=== PATIENT | female | born 1930 | race Caucasian/White ===

== ENCOUNTER → 2016-03-28 | Outpatient (CLI) | payer OTHER, BC ==
[~2016-03-28] MED LIST: BIMA0.038 OPB; BTH25 PO; CALC500C70 PO; CHOL100010 PO; CMD2 PO; CMD3 PO; CYAN10005 PO; EZET10TA63 PO; LSX20 PO; NXM/40 PO; SENN-65 PO; SIMV20TA2 PO; TIMO0.2534 OPB
== END | disposition home or self-care (01) ==
LOC: C.LABSPEC 17:31
PROVIDERS: ATTEND Nurse Practitioner Adult Health
DX: N39.0 Urinary tract infection, site not specified (principal)

== ENCOUNTER → 2016-06-28 | Outpatient (CLI) | payer OTHER, BC | END | disposition home or self-care (01) | LOC: C.LABSPEC 16:58 | PROVIDERS: ATTEND Urology | DX: N39.0 Urinary tract infection, site not specified (principal) ==

== ENCOUNTER 2017-02-03 07:43 | Inpatient (IN) | payer OTHER, BC ==
[~2017-02-03] VITALS: Ht 157.5 cm; Wt 81.2 kg
--- NOTE | 2017-02-03 07:55 | EMERGENCY ROOM VISIT NOTE ---
History Report prepared by Josiah: Sander Perry Under the Supervision of: Dr. Garcia Dumont M.D. First contact with patient: 07:47 Stated Complaint: RESPIRATORY History of Present Illness The patient is an 86 year old female who presents to the Emergency Room with complaints of a persistent illness that started a couple weeks ago. She states that she thinks she has pneumonia. The patient says that she has been having shortness of breath with a dry cough, and fever. She notes that she was seen by her primary care provider 2 days ago, and was put on a Z-pack and CPAP. The patient adds that the CPAP had not been helping, so she did not use it today. She says that she also has pain on both sides of her chest. The patient denies any headaches, flu-like body aches, urinary symptoms, or bowel movement problems. She notes that she has no underlying lung issues. The patient is on Coumadin and has a pacemaker. She notes no history of heart attacks. She did get her flu shot this season. Source of History: patient, nursing staff Onset: A couple weeks ago Position: other (global - illness) Quality: other (thinks has pneumonia) Timing: other (persistent) Associated Symptoms: + fevers, + cough (dry), + chest pain, + SOB, No headache, No urinary symptoms (or bowel movement problems) Note: Associated symptoms: Denies flu-like body aches. Review of Systems See HPI for pertinent positives & negatives. A total of 10 systems reviewed and were otherwise negative. Past Medical & Surgical Medical Problems: (1) Atrial Fibrillation (2) Cardiac Pacemaker In Situ (3) Chest pain (4) Hyperlipidemia Nec/Nos (5) Personal History, Pneumonia (Recurrent) (6) Pnemonia (7) Spinal Stenosis-Lumbar Old medical records were reviewed. Nurse's notes were reviewed and I agree with. Family History Family history omitted secondary to patient's advanced age. Social History Smokeless Tobacco Use: No Drug Use: none Marital Status: Occupation Status: retired Current/Historical Medications Scheduled Ascorbic Acid (Vitamin C), 250 MG PO DAILY Bimatoprost (Lumigan), 1 DROPS OP HS Calcium Carbonate (Calcium Carbonate), 600 MG PO DAILY Cyanocobalamin (B-12), 100 MCG PO DAILY Docusate Sodium (Docusate Sodium), 100 MG PO DAILY Esomeprazole Magnesium (Nexium), 40 MG PO DAILY Ezetimibe (Zetia), 10 MG PO DAILY Simvastatin (Zocor), 20 MG PO QPM Timolol Maleate (Ophth) (Timolol Maleate), 1 DROP OPB DAILY Warfarin Sod (Jantoven), 2 MG PO UD Scheduled PRN Furosemide (Lasix), 20 MG PO DAILY PRN for ADEMA Allergies Coded Allergies: Sulfa Drugs (Verified Allergy, Unknown, SWEAT, RASH, VOMIT, 02/03/17) Tramadol (Unverified Allergy, Unknown, ., 02/03/17) Morphine (Verified Adverse Reaction, Intermediate, vomiting, 02/03/17) Physical Exam Vital Signs Date Time Temp Pulse Resp B/P (MAP) Pulse Ox O2 Delivery O2 Flow Rate FiO2 02/03/17 09:38 82 20 97 02/03/17 09:33 93 32 96 02/03/17 09:28 89 25 96 02/03/17 09:23 88 22 96 02/03/17 09:18 95 23 96 02/03/17 09:13 92 30 96 02/03/17 09:08 84 20 97 02/03/17 09:03 84 16 97 02/03/17 08:58 86 19 96 02/03/17 08:53 85 21 96 02/03/17 08:50 94 Nasal Cannula 3.0 02/03/17 08:48 108 21 93 02/03/17 08:44 86 02/03/17 08:42 94 Nasal Cannula 3.0 02/03/17 08:40 127/54 02/03/17 08:38 37.2 91 20 94 Nasal Cannula 3.0 02/03/17 07:49 Room Air 97 02/03/17 07:49 37.2 108 20 163/70 97 Room Air Physical Exam General: Non-ill appearing older female in no acute distress. HEENT: Normal cephalic atraumatic. Pupils are equal round and reactive to light. Extraocular movements are intact. Oropharynx is pink with moist mucous membranes. No swelling of the mouth lips or tongue. Neck: Supple with a midline trachea. No meningeal signs or stiffness, no JVD or bruits. No Stridor. Chest: Clear to auscultation bilaterally. No wheezes or rhonchi. No increased work of breathing. Heart: regular rate and rhythm. Abdomen: Soft nontender, nondistended without rebound guarding or rigidity. Extremities: No cyanosis clubbing or edema. No calf tenderness or assymetry Spine/Back. Non tender to palpation. No CVA tenderness Skin: Good turgor without rashes. Neurologic exam: Cranial nerves two through 12 are intact. Motor and sensation are intact and symmetrical throughout. Medical Decision & Procedures ER Provider Diagnostic Interpretation: X-ray results as stated below per interpretation by me and the radiologist: CHEST ONE VIEW PORTABLE CLINICAL HISTORY: 86 years-old Female presenting with CHEST PAIN. TECHNIQUE: Portable upright AP view of the chest was obtained. COMPARISON: 05/22/2011. FINDINGS: Left subclavian pacer with leads to the right atrium, coronary sinus, and right ventricular apex. Additional abandoned right ventricular lead also noted. Cardiac silhouette enlarged. Atherosclerosis of the aortic arch. Bilateral prominence of the alvaro, left greater than right. Patchy right mid and lower lung opacities. No large effusion or pneumothorax. Osseous structures normal. Upper abdomen normal. IMPRESSION: 1. Cardiomegaly with patchy right mid and lower lung opacities. This could represent pneumonia or aspiration. Pulmonary edema may be less likely given the asymmetry. 2. Prominence of the left hilum. An underlying mass or lymphadenopathy is difficult to exclude, although this may be vascular in origin. Further evaluation with chest CT to be considered as clinically indicated. The report will be called/faxed according to standard departmental protocol. Electronically signed by: Twin Rangel M.D. 02/03/2017 8:24 AM Dictated Date/Time: 02/03/2017 8:22 AM Laboratory Results 02/03/17 08:00 Red Blood Count 3.94, Mean Corpuscular Volume 91.6, Mean Corpuscular Hemoglobin 30.2, Mean Corpuscular Hemoglobin Concent 33.0, Mean Platelet Volume 8.2, Neutrophils (%) (Auto) 82.1, Lymphocytes (%) (Auto) 6.9, Monocytes (%) (Auto) 8.3, Eosinophils (%) (Auto) 2.1, Basophils (%) (Auto) 0.3, Neutrophils # (Auto) 13.14, Lymphocytes # (Auto) 1.11, Monocytes # (Auto) 1.32, Eosinophils # (Auto) 0.34, Basophils # (Auto) 0.04 02/03/17 08:00 Test 02/03/17 08:00 02/03/17 08:10 02/03/17 09:37 White Blood Count 16.00 K/uL (4.8-10.8) Red Blood Count 3.94 M/uL (4.2-5.4) Hemoglobin 11.9 g/dL (12.0-16.0) Hematocrit 36.1 % (37-47) Mean Corpuscular Volume 91.6 fL (80-100) Mean Corpuscular Hemoglobin 30.2 pg (25-34) Mean Corpuscular Hemoglobin Concent 33.0 g/dl (32-36) Platelet Count 214 K/uL (130-400) Mean Platelet Volume 8.2 fL (7.4-10.4) Neutrophils (%) (Auto) 82.1 % Lymphocytes (%) (Auto) 6.9 % Monocytes (%) (Auto) 8.3 % Eosinophils (%) (Auto) 2.1 % Basophils (%) (Auto) 0.3 % Neutrophils # (Auto) 13.14 K/uL (1.4-6.5) Lymphocytes # (Auto) 1.11 K/uL (1.2-3.4) Monocytes # (Auto) 1.32 K/uL (0.11-0.59) Eosinophils # (Auto) 0.34 K/uL (0-0.5) Basophils # (Auto) 0.04 K/uL (0-0.2) RDW Standard Deviation 48.2 fL (36.4-46.3) RDW Coefficient of Variation 14.3 % (11.5-14.5) Immature Granulocyte % (Auto) 0.3 % Immature Granulocyte # (Auto) 0.05 K/uL (0.00-0.02) Prothrombin Time 28.3 SECONDS (9.0-12.0) Prothromb Time International Ratio 2.7 (0.9-1.1) Activated Partial Thromboplast Time 52.7 SECONDS (21.0-31.0) Partial Thromboplastin Ratio 2.0 Anion Gap 9.0 mmol/L (3-11) Est Creatinine Clear Calc Drug Dose 57.9 ml/min Estimated GFR () 90.0 Estimated GFR (Non- 77.7 BUN/Creatinine Ratio 18.1 (10-20) Calcium Level 9.0 mg/dl (8.5-10.1) Total Bilirubin 0.4 mg/dl (0.2-1) Direct Bilirubin 0.1 mg/dl (0-0.2) Aspartate Amino Transf (AST/SGOT) 24 U/L (15-37) Alanine Aminotransferase (ALT/SGPT) 32 U/L (12-78) Alkaline Phosphatase 123 U/L (45-117) Total Creatine Kinase 55 U/L (26-192) Creatine Kinase MB < 0.5 ng/ml (0.5-3.6) Creatine Kinase MB Ratio (0-3.0) Pro-B-Type Natriuretic Peptide 406 pg/ml (0-1800) Total Protein 8.1 gm/dl (6.4-8.2) Albumin 2.8 gm/dl (3.4-5.0) Lipase 71 U/L (73-393) Influenza Type A Antigen Neg for Influ A (NEG) Influenza Type B Antigen Neg for Influ B (NEG) Bedside Lactic Acid Venous 0.49 mmol/L (0.90-1.70) Laboratory studies as stated above per my review. Medications Administered Medications (Trade) Dose Ordered Sig/Zoran Route Start Time Stop Time Status Last Admin Dose Admin Piperacillin Sod/ Tazobactam Sod (Zosyn Iv) 4.5 gm NOW STAT IV 02/03/17 09:18 02/03/17 09:20 DC 02/03/17 09:31 4.5 GM Sodium Chloride 250 ml @ 999 mls/hr Q16M STAT IV 02/03/17 09:18 02/03/17 09:33 DC 02/03/17 09:32 999 MLS/HR Sodium Chloride 1,000 ml @ 100 mls/hr Q10H STAT IV 02/03/17 09:18 02/03/17 11:46 DC 02/03/17 09:32 100 MLS/HR ECG Indication: SOB/dyspnea Rate (beats per minute): 94 Rhythm: other (ventricular paced rhythm) Findings: no acute ischemic change, no ectopy Comparison ECG Date: compared to May 19 2011, paced rhythm has replaced afib ED Course 0747: Past medical records reviewed. The patient was evaluated in room B7, and a complete history and physical examination were performed. 0918: Ordered NSS 1000 ml @ 100 mls/hr IV, NSS 250 ml @ 999 mls/hr IV, Zosyn IV 4.5 gm. 09: Upon reevaluation, the patient is resting comfortably. I discussed the results and treatment plan with the patient. She verbalized agreement of the treatment plan. The patient will be evaluated for further management. 926: Discussed the patient's case with Dr. Rahul Mcrae manager shop. The patient will be evaluated for further management. Medical Decision Differentials include pneumonia, bronchitis, influenza, cardiac disease, arrhythmia, electrolyte or metabolic abnormality. This patient comes in as described above. She was placed in room B7. She is here for treatment and evaluation of cough and temperature and concern for pneumonia. She's had pneumonia several years ago and says this feels similar she started a Z-Ernesto about 2 days ago. She says it hurts when she coughs. Her white count came back elevated. Her x-ray shows pneumonia in the right middle and lower lobes. She was given IV Zosyn as well as IV fluids she is remained normotensive. I do think she needs to be admitted for further treatment and evaluation. I have consult the [facility] hospitalist team to see her for admission. Medication Reconcilliation Current Medication List: was personally reviewed by me Blood Pressure Screening Patient's blood pressure: Elevated blood pressure Blood pressure disposition: Elevated BP felt to be situational Consults Time Called: [phone] Consulting Physician: Dr. Rahul Mcrae manager shop Returned Call: [phone] Discussed the patient's case with Dr. Rahul Mcrae manager shop. The patient will be evaluated for further management. Impression Primary Impression: PNA (pneumonia) Scribe Attestation The scribe's documentation has been prepared under my direction and personally reviewed by me in its entirety. I confirm that the note above accurately reflects all work, treatment, procedures, and medical decision making performed by me. Departure Information Dispostion Being Evaluated By Hospitalist Referrals Anthony Lanier PA-C (PCP)
[2017-02-03 08:22] LABS: BASO % 0.3 %; BASO ABS # 0.04 K/uL (0-0.2); EOS % 2.1 %; EOS ABS # 0.34 K/uL (0-0.5); HEMATOCRIT 36.1 % (37-47); HEMOGLOBIN 11.9 g/dL (12.0-16.0); IG# 0.05 K/uL (0.00-0.02); LYMPH % 6.9 %; LYMPH ABS # 1.11 K/uL (1.2-3.4); MEAN CELL VOLUME 91.6 fL (80-100); MEAN CORPUSCULAR HEMOGLOBIN 30.2 pg (25-34); MEAN PLATELET VOLUME 8.2 fL (7.4-10.4); MONO % 8.3 %; MONO ABS # 1.32 K/uL (0.11-0.59); NEUT % 82.1 %; NEUT ABS # 13.14 K/uL (1.4-6.5); PLATELET COUNT 214 K/uL (130-400); RED CELL DISTRIBUTION WIDTH CV 14.3 % (11.5-14.5); RED CELL DISTRIBUTION WIDTH SD 48.2 fL (36.4-46.3)
--- NOTE | 2017-02-03 08:25 | DIAGNOSTIC IMAGING REPORT ---
CHEST ONE VIEW PORTABLE CLINICAL HISTORY: 86 years-old Female presenting with CHEST PAIN. TECHNIQUE: Portable upright AP view of the chest was obtained. COMPARISON: 05/22/2011. FINDINGS: Left subclavian pacer with leads to the right atrium, coronary sinus, and right ventricular apex. Additional abandoned right ventricular lead also noted. Cardiac silhouette enlarged. Atherosclerosis of the aortic arch. Bilateral prominence of the alvaro, left greater than right. Patchy right mid and lower lung opacities. No large effusion or pneumothorax. Osseous structures normal. Upper abdomen normal. IMPRESSION: 1. Cardiomegaly with patchy right mid and lower lung opacities. This could represent pneumonia or aspiration. Pulmonary edema may be less likely given the asymmetry. 2. Prominence of the left hilum. An underlying mass or lymphadenopathy is difficult to exclude, although this may be vascular in origin. Further evaluation with chest CT to be considered as clinically indicated. The report will be called/faxed according to standard departmental protocol. Electronically signed by: Twin Rangel M.D. 02/03/2017 8:24 AM Dictated Date/Time: 02/03/2017 8:22 AM
[2017-02-03 08:43] LABS: ALBUMIN 2.8 gm/dl (3.4-5.0); BLOOD UREA NITROGEN 13 mg/dl (7-18); CARBON DIOXIDE 26 mmol/L (21-32); CREATININE 0.71 mg/dl (0.60-1.20); GLUCOSE 144 mg/dl (70-99); POTASSIUM 3.6 mmol/L (3.5-5.1); SODIUM 135 mmol/L (136-145); TOTAL PROTEIN 8.1 gm/dl (6.4-8.2)
[2017-02-03 08:44] LABS: ALKALINE PHOSPHATASE 123 U/L (45-117); ALT/SGPT 32 U/L (12-78); AST/SGOT 24 U/L (15-37); CKMB < 0.5 ng/ml (0.5-3.6); LIPASE 71 U/L (73-393)
[2017-02-03 08:46] LABS: INFLUENZA B ANTIGEN Neg for Influ B (NEG)
[2017-02-03 08:48] LABS: INR 2.7 (0.9-1.1)
[2017-02-03] MEDS ORDERED: [UNRECOGNIZED DRUG - CODE] OPB (09:01)
[2017-02-03] MEDS ORDERED: CYAN1TAB2 PO (09:01)
[2017-02-03] MEDS ORDERED: DOCU100C31 PO (09:01)
[2017-02-03] MEDS ORDERED: CALC-392 PO (09:01)
[2017-02-03] MEDS ORDERED: BIMA0.01 OP (09:01)
[2017-02-03] MEDS ORDERED: ASCO250C3 PO (09:01)
[2017-02-03] MEDS ORDERED: FURO-85 PO (09:01)
[2017-02-03] MEDS ORDERED: WARF2TAB8 PO (09:02)
[2017-02-03] MEDS ORDERED: SODIUM CHLORIDE 0.9% 1000ML 1,000 ML IV STA (09:18)
[2017-02-03] MEDS ORDERED: PIPERACILLIN/TAZOBACTAM 4.5 GM/100ML D5W IV STA (09:18)
[2017-02-03] MEDS ORDERED: SODIUM CHLORIDE 0.9% 1000ML 250 ML IV STA (09:18)
[2017-02-03 09:33] LABS: PTT PATIENT 52.7 SECONDS (21.0-31.0)
[2017-02-03] MEDS ORDERED: MAGNESIUM HYDROXIDE SUSP 30 ML UDC PO PRN (10:30)
[2017-02-03] MEDS ORDERED: ONDANSETRON INJ 2 MG/ML 2 ML VIAL IV PRN (10:30)
[2017-02-03] MEDS ORDERED: ALUMINUM/MAGNESIUM/SIMETH (MAALOX MAX) 30 ML UDC PO PRN (10:30)
[2017-02-03] MEDS ORDERED: ACETAMINOPHEN 325 MG TAB PO PRN (10:30)
[2017-02-03] MEDS ORDERED: NITROGLYCERIN 0.4 MG SL PER TAB CHARGE SL PRN (10:30)
[2017-02-03] MEDS ORDERED: OPTIRAY 320 IV PRN (10:30)
--- NOTE | 2017-02-03 11:10 | NUR ---
A: First contact with patient, arrived from ED. Walked oob to bed independently with steady gait, VSS. Admission completed with patient at bedside. Oriented to room. Assessment as charted in admission. IV fluids running per MD order.
[2017-02-03 11:17] VITALS: BP 157/83; PULSE 91; TEMP 36.9; Ht 157.5 cm; Wt 81.2 kg
--- NOTE | 2017-02-03 12:04 | NUR ---
A: Patient to CT scan via wheelchair.
[2017-02-03] MEDS: DOXYCYCLINE IV 100 MG in DEXTROSE 5% 100ML 100 ML IV SCH ×2 (12:18→23:34)
[2017-02-03] MEDS: SODIUM CHLORIDE 0.9% 1000ML 1,000 ML IV SCH (12:18)
--- NOTE | 2017-02-03 12:20 | DIAGNOSTIC IMAGING REPORT ---
(CHEST FOR PE) ANGIO WITH CLINICAL HISTORY: 86 years-old Female presenting with ^CHEST PAIN. SOB. HILAR MASS. TECHNIQUE: Multidetector CT angiography of the chest was performed after administration of intravenous contrast. 3-D volumetric and/or maximum intensity projection (MIP) images were subsequently reconstructed for review. IV contrast: 89 mL of Optiray 320. A dose lowering technique was used consistent with the principles of ALARA (as low as reasonably achievable). COMPARISON: Chest x-ray performed earlier the same day. CT DOSE (mGy.cm): The estimated cumulative dose is 551.78 mGy.cm. FINDINGS: Paramedic Supervisor topogram: Left subclavian pacer. Pulmonary vasculature: The study is adequate for assessment of the pulmonary vascular tree. No filling defect within the pulmonary arteries to suggest embolus. Main pulmonary artery enlarged measuring nearly 4 cm in transverse dimension. No flattening of the interventricular septum. No intracardiac filling defect. No reflux of contrast into the hepatic veins. Remaining chest: On soft tissue windows, multiple hypodense exophytic nodules noted in the thyroid, the largest measuring over 2 cm. Several prominent mediastinal lymph nodes noted in the pretracheal and subcarinal regions measuring up to 12 mm in the short axis. Prominent hilar lymph nodes, right greater than left. Atherosclerosis of the aorta. Left subclavian pacer with leads to the right atrium, coronary sinus, and right ventricular apex. Coronary artery calcification. Normal heart size. Trace left pleural effusion. No pericardial effusion. 2.7 cm nodule in the left adrenal gland with a density consistent with a benign adenoma. On lung windows, patchy solid consolidation in the right middle lobe, left apex, and lingula. Tree-in-bud opacities in the superior segment of the right lower lobe and right upper lobe. Minimal patchy opacities also noted in the lower lobes primarily peripherally independently. Central airways patent. On bone windows, degenerative changes of the spine. IMPRESSION: 1. No evidence of pulmonary embolus. 2. Patchy consolidation in all 5 lobes to varying degrees concerning for multifocal pneumonia. Element of atelectasis likely coexists, especially in the lingula. 3. Mediastinal and hilar lymphadenopathy, which could be reactive given the findings of pneumonia. 4. Main pulmonary artery enlargement suggests pulmonary hypertension. 5. Prominent thyroid nodules. Electronically signed by: Twin Rangel M.D. 02/03/2017 12:19 PM Dictated Date/Time: 02/03/2017 12:10 PM
--- NOTE | 2017-02-03 13:12 | HISTORY & PHYSICAL EXAMINATION ---
DATE OF ADMISSION: 02/03/2017 CHIEF COMPLAINT: Shortness of breath and weakness. HISTORY OF PRESENT ILLNESS: This is an 86-year-old female with past medical history significant for paroxysmal atrial fibrillation status post pacemaker, history of recurrent pneumonia, history of hyperlipidemia, history of spinal stenosis, presents with not feeling well, Has on and off some dry cough. She saw her family doctor a few days back and was prescribed Z-YOGI, but she said it was not helping. She also had some chest pains, right lower side and midchest, mostly on coughing and moving around, but has a point tenderness, so she came to the ER and found to have pneumonia on x-ray. Hemodynamically stable. Denies any dizziness. Has headaches, has macular degeneration, has hearing problem. No nasal drainage. No sore throat, no difficulty swallowing. No nausea, no vomiting, no abdominal pain. Appetite has been poor for last few days. Ambulates okay at home. Sometimes uses cane. Normal bowel and bladder movements. No blood in the stools, no blood in the urine. No burning micturition. Currently, resting comfortably and hemodynamically stable. ALLERGIES: MORPHINE, OXYCODONE, SULFA ANTIBIOTICS, AND TRAMADOL. PAST MEDICAL HISTORY: As mentioned above. PAST SURGICAL HISTORY: Pacemaker placement, tubal ligation, tonsillectomy, heel spur removal. FAMILY HISTORY: Father of esophageal cancer, mother of heart disease. SOCIAL HISTORY: No smoking history. Lives with her daughter. REVIEW OF SYMPTOMS: As per HPI. Rest of review of symptoms negative. MEDICATIONS: At home: The patient is on Lasix 20 mg p.o. daily p.r.n. for edema, ascorbic acid 250 mg p.o. daily, Lumigan 0.01% ophthalmic solution at bedtime, calcium carbonate 600 mg p.o. daily, vitamin B12 100 mcg p.o. daily, Colace 100 mg p.o. daily, Nexium 40 mg p.o. daily, Zetia 10 mg p.o. daily, Zocor 20 mg p.o. q.p.m., timolol 0.5% ophthalmic solution daily, Coumadin 2 mg as directed. PHYSICAL EXAMINATION: GENERAL: The patient is of moderate build, not in distress. VITAL SIGNS: Temperature 37.2, pulse 82, respiratory rate 20, blood pressure 127/54, oxygen 97% on 3 liters. HEENT: No pallor, no icterus. Pupils equal, round, and reactive to light. NECK: No JVD, no neck masses, no carotid bruits. CARDIOVASCULAR: S1, S2 heard, regular rate and rhythm, no murmur, no gallop. RESPIRATORY SYSTEM: Normal AP diameter. No accessory muscle use. Mild bibasilar crackles. No wheezing. ABDOMEN: Soft, bowel sounds present. Nontender. No distention. CENTRAL NERVOUS SYSTEM: Cranial nerves II-XII grossly intact. Nonfocal. EXTREMITIES: Trace pedal edema, no erythema. LABS: WBC 16, hemoglobin 11.9, hematocrit 36.1, platelets 214. Sodium 135, potassium 3.6, chloride 101, bicarbonate 26, BUN 13, creatinine 0.7, serum glucose 144, point of care lactic acid 0.4. Calcium 9, total bilirubin 0.4, direct bilirubin 0.1, AST 24, ALT 32, alkaline phosphatase 123. Lipase 71, PT 28.3 INR 2.7, APTT 52.7 Influenza A and B negative. IMAGING DATA: Chest x-ray shows patchy right mid and lower lung opacities. This could represent pneumonia aspiration, prominence of the left hilum. Underlying mass or lymphadenopathy difficult to exclude. EKG: Shows atrial sensed ventricular paced rhythm with a rate of 94. ASSESSMENT AND PLAN: This is an 86-year-old female who presents with pneumonia. 1. Right-sided pneumonia. The patient feeling weak and cough. Failed outpatient Z-YOGI. Possible aspiration. We will place on IV doxycycline and IV Unasyn. We will get a speech evaluation. Will also do flu PCR test. Monitor on tele floor. 2. Chest pains mostly from pneumonia. We will also get a CT chest to rule out PE and also for underlying lung hilar mass, will trend the cardiac enzymes. 3. History of atrial fibrillation status post pacemaker. Heart rate is under control on Coumadin. INR is therapeutic. Will follow PT/INR. 4. Hyperlipidemia. Continue statin and Zetia. 5. Gastroesophageal reflux disease. Continue Nexium. 6. Deep venous thrombosis prophylaxis, on Coumadin. DISPOSITION: Admit to tele floor. Expect to discharge home and follow with family doctor. Level 1 full code. MTDD
[2017-02-03] MEDS: AMPICILLIN/SULBACTAM SOD INJ 1,500 MG in SODIUM CHLORIDE 0.9% 100ML 100 ML IV SCH ×2 (14:34→19:52)
[2017-02-03 14:51] VITALS: BP 143/72; PULSE 83; TEMP 36.9; O2SAT 96
[2017-02-03] MEDS: WARFARIN SOD 2 MG TAB PO SCH (17:12)
[2017-02-03 19:33] LABS: CKMB 0.5 ng/ml (0.5-3.6)
[2017-02-03] MEDS: SIMVASTATIN 20 MG TAB PO SCH (19:47)
[2017-02-03] MEDS: BIMATOPROST 0.01% OP SOLN 2.5 ML BTL OP SCH (19:48)
[2017-02-03 19:57] VITALS: BP 123/72; PULSE 87; TEMP 37.9; O2SAT 97
--- NOTE | 2017-02-03 20:00 | NUR ---
A: Assessment completed see EMR. Pt is A&Ox4 and is OOB with supervision in the room. Pt admitted with chest pain and pneumonia. Pt complains of a headache at this time rating it a 7 out of 10. See eMAR. Vitals WNL. +1 pitting edema noted to pts BLE. Pt is paced on the monitor. Pt is currently on NSS running at 75mL/hr into her left AC. Pt is currently on 3L of O2 via nasal cannula and is sating in the 90s. Pt is a moderate fall risk. Call mane within reach and pt encouraged to ring for assistance. Pt is from home and plans to return there upon discharge. No discharge date at this time.
[2017-02-03 23:23] VITALS: BP 115/65; PULSE 78; TEMP 36.7; O2SAT 98
[2017-02-04] VITALS (7 sets, daily range): BP systolic 104–134; BP diastolic 53–73; PULSE 74–92; TEMP 36.7–37.6; O2SAT 95–99
--- NOTE | 2017-02-04 | NUR ---
A: Assessment completed see EMR. Pt is resting at this time with no complaints. Vitals WNL. Pt is paced on the monitor. Call mane within reach, pt encouraged to ring and bed alarm in use.
[2017-02-04] MEDS: SODIUM CHLORIDE 0.9% 1000ML 1,000 ML IV SCH ×2 (01:41→14:25)
[2017-02-04] MEDS: AMPICILLIN/SULBACTAM SOD INJ 1,500 MG in SODIUM CHLORIDE 0.9% 100ML 100 ML IV SCH ×4 (01:44→20:09)
[2017-02-04 03:12] LABS: CKMB 0.6 ng/ml (0.5-3.6)
--- NOTE | 2017-02-04 04:00 | NUR ---
A: Assessment completed see EMR. Pt is resting at this time with no complaints. Vitals WNL. Pt is paced on the monitor. Call mane within reach and pt encouraged to ring for assistance.
[2017-02-04 07:35] LABS: BASO % 0.3 %; BASO ABS # 0.05 K/uL (0-0.2); EOS % 1.7 %; EOS ABS # 0.25 K/uL (0-0.5); HEMATOCRIT 33.2 % (37-47); HEMOGLOBIN 10.6 g/dL (12.0-16.0); IG# 0.06 K/uL (0.00-0.02); LYMPH % 6.7 %; MEAN CELL VOLUME 92.5 fL (80-100); MEAN CORPUSCULAR HEMOGLOBIN 29.5 pg (25-34); MEAN CORPUSCULAR HGB CONC 31.9 g/dl (32-36); MEAN PLATELET VOLUME 8.4 fL (7.4-10.4); MONO % 10.4 %; MONO ABS # 1.56 K/uL (0.11-0.59); NEUT % 80.5 %; NEUT ABS # 12.11 K/uL (1.4-6.5); PLATELET COUNT 214 K/uL (130-400); RED CELL DISTRIBUTION WIDTH CV 14.2 % (11.5-14.5); RED CELL DISTRIBUTION WIDTH SD 48.2 fL (36.4-46.3); WHITE BLOOD COUNT 15.03 K/uL (4.8-10.8)
[2017-02-04] MEDS: EZETIMIBE 10MG TAB PO SCH (07:39)
[2017-02-04] MEDS: PANTOprazole SOD 40 MG TAB PO SCH ×2 (07:39→07:43)
[2017-02-04] MEDS: CALCIUM CARBONATE 1250MG TAB PO SCH (07:39)
[2017-02-04] MEDS: DOCUSATE SODIUM 100 MG CAP PO SCH (07:39)
[2017-02-04] MEDS: CYANOCOBALAMIN 100 MCG TAB (VIT B-12) PO SCH (07:40)
[2017-02-04] MEDS: ASCORBIC ACID 500 MG TAB PO SCH (07:40)
[2017-02-04] MEDS: TIMOLOL MALEATE 0.5% OP SOLN 5 ML BTL OPB SCH (07:41)
[2017-02-04 07:49] LABS: INR 3.4 (0.9-1.1)
[2017-02-04 08:12] LABS: ALBUMIN 2.2 gm/dl (3.4-5.0); CALCIUM 8.4 mg/dl (8.5-10.1); CREATININE 0.61 mg/dl (0.60-1.20)
--- NOTE | 2017-02-04 08:52 | NUR ---
A: AGREE WITH FERMIN POMPASEWER AND INSPECTOR AND CHARTING.
--- NOTE | 2017-02-04 08:54 | NUR ---
A: Pt. is AAO sitting comfortably on the side of the bed. No complaints of pain. IV antibiotic is running. IV site intact and asymptomatic.
[2017-02-04] MEDS: DOXYCYCLINE IV 100 MG in DEXTROSE 5% 100ML 100 ML IV SCH (11:47)
--- NOTE | 2017-02-04 12:00 | NUR ---
A: Pt. is AAOx4. VSS on NC 3L. Pt. is comfortably sitting on the side of the bed. No pain reported.
--- NOTE | 2017-02-04 13:50 | NUR ---
Case Management: This pt is on the screening tool for >80 & living alone. Met with pt to do discharge planning. Pt lives in a trailer with no steps to enter. She uses a cane occasionally. She is receiving home delivered meals and has assist from a granddgariel Vasquez who visits almost daily and assists with what ever pt needs. Pt states she is able to bathe and dress herself. Her vision is limited due to glaucoma and she is serviced by the [facility] - they provide tools to assist with her vision as needed. Pt denies any difficulty taking her medications. No discharge needs identified at this visit.
[2017-02-04] MEDS: WARFARIN SOD 2 MG TAB PO SCH (15:52)
--- NOTE | 2017-02-04 16:00 | NUR ---
A: The patient is alert and oriented x4, sitting at the edge of the bed in no apparent distress. Pt denies pain, nausea and shortness of breath, vital signs are stable on O2 3L via nasal cannula and the patient is in a paced rhythm on the lunchroom monitor. The patient's IV fluids have been discontinued, so her left antecubital peripheral IV site is saline locked and asymptomatic. See full assessment. Call mane is within reach.
--- NOTE | 2017-02-04 16:08 | Progress Note ---
Internal Med Progress Note Date of Service: Feb 04, 2017. Provider Documentation: SUBJECTIVE: resting comfortably feeling much better sob and cough much improved denies any chest pain wants to go home eating fine OBJECTIVE: Vital Signs-as noted below Exam: General-alert and oriented. Not in distress ENT-Normal hearing Neck-no neck masses supple Lungs-cta b/l no wheezing no crackles Heart-S1 and S2 heard regular rate and rthym, no murmurs Abdomen-Soft bowel sounds present non tender no distension Extremities-no edema no erythema Neuro-alert and awake moves extremities Lab data as noted below. ASSESSMENT & PLAN: : This is an 86-year-old female who presents with pneumonia. 1.Multi ,lobar pneumonia. The patient feeling weak and cough. Failed outpatient Z-YOGI. Possible aspiration. Started on IV doxycycline and IV Unasyn. We will get a speech evaluation. Improving. continue same. 2. Chest pains mostly from pneumonia. Serial Ce negative CTA chest no PE. Mediastinal lymphadenopathy mostly reactive. Currently asymptomatic. 3. History of atrial fibrillation status post pacemaker. Heart rate is under control on Coumadin. INR is therapeutic. Will follow PT/INR. 4. Hyperlipidemia. Continue statin and Zetia. 5. Gastroesophageal reflux disease. Continue Nexium. 6. Deep venous thrombosis prophylaxis, on Coumadin DISPOSITION pt/ot possible d/c in am if stable Vital Signs: Date Time Temp Pulse Resp B/P (MAP) Pulse Ox O2 Delivery O2 Flow Rate FiO2 02/04/17 14:35 37.0 79 17 134/73 (93) 95 3.0 02/04/17 11:57 Nasal Cannula 3.0 02/04/17 10:59 36.7 74 18 124/72 (89) 97 3.0 02/04/17 07:59 Nasal Cannula 3.0 02/04/17 07:18 37.3 80 20 120/53 (75) 98 Nasal Cannula 3.0 02/04/17 05:23 36.9 79 20 119/53 (75) 95 Nasal Cannula 3.0 02/04/17 04:00 Nasal Cannula 3.0 02/04/17 00:00 Nasal Cannula 3.0 02/03/17 23:23 36.7 78 20 115/65 (82) 98 Nasal Cannula 3.0 02/03/17 20:00 Nasal Cannula 3.0 02/03/17 19:57 37.9 87 19 123/72 (89) 97 Nasal Cannula 2.0 Lab Results: Results Past 24 Hours Test 02/03/17 18:27 02/04/17 02:33 02/04/17 07:01 Range/Units Total Creatine Kinase 50 47 26-192 U/L Creatine Kinase MB 0.5 0.6 0.5-3.6 ng/ml Creatine Kinase MB Ratio 1.0 1.3 0-3.0 Troponin I < 0.015 < 0.015 0-0.045 ng/ml White Blood Count 15.03 4.8-10.8 K/uL Red Blood Count 3.59 4.2-5.4 M/uL Hemoglobin 10.6 12.0-16.0 g/dL Hematocrit 33.2 37-47 % Mean Corpuscular Volume 92.5 80-100 fL Mean Corpuscular Hemoglobin 29.5 25-34 pg Mean Corpuscular Hemoglobin Concent 31.9 32-36 g/dl Platelet Count 214 130-400 K/uL Mean Platelet Volume 8.4 7.4-10.4 fL Neutrophils (%) (Auto) 80.5 % Lymphocytes (%) (Auto) 6.7 % Monocytes (%) (Auto) 10.4 % Eosinophils (%) (Auto) 1.7 % Basophils (%) (Auto) 0.3 % Neutrophils # (Auto) 12.11 1.4-6.5 K/uL Lymphocytes # (Auto) 1.00 1.2-3.4 K/uL Monocytes # (Auto) 1.56 0.11-0.59 K/uL Eosinophils # (Auto) 0.25 0-0.5 K/uL Basophils # (Auto) 0.05 0-0.2 K/uL RDW Standard Deviation 48.2 36.4-46.3 fL RDW Coefficient of Variation 14.2 11.5-14.5 % Immature Granulocyte % (Auto) 0.4 % Immature Granulocyte # (Auto) 0.06 0.00-0.02 K/uL Prothrombin Time 34.6 9.0-12.0 SECONDS Prothromb Time International Ratio 3.4 0.9-1.1 Sodium Level 136 136-145 mmol/L Potassium Level 4.0 3.5-5.1 mmol/L Chloride Level 103 98-107 mmol/L Carbon Dioxide Level 27 21-32 mmol/L Anion Gap 6.0 3-11 mmol/L Blood Urea Nitrogen 9 7-18 mg/dl Creatinine 0.61 0.60-1.20 mg/dl Est Creatinine Clear Calc Drug Dose 66.2 ml/min Estimated GFR () 95.8 Estimated GFR (Non- 82.7 BUN/Creatinine Ratio 14.2 10-20 Random Glucose 119 70-99 mg/dl Calcium Level 8.4 8.5-10.1 mg/dl Magnesium Level 1.9 1.8-2.4 mg/dl Total Bilirubin 0.4 0.2-1 mg/dl Direct Bilirubin 0.2 0-0.2 mg/dl Aspartate Amino Transf (AST/SGOT) 23 15-37 U/L Alanine Aminotransferase (ALT/SGPT) 30 12-78 U/L Alkaline Phosphatase 127 45-117 U/L Total Protein 7.0 6.4-8.2 gm/dl Albumin 2.2 3.4-5.0 gm/dl
--- NOTE | 2017-02-04 20:00 | NUR ---
A/ID: The patient is alert and oriented x4, denies pain, nausea and shortness of breath. The patient's vital signs are stable, and she is in a paced rhythm on the secured entrance monitor. Assessment is unchanged, the patient is sitting at the edge of the bed in no apparent distress. The patient is from home with her daughter and she would like to return home as soon as she is able. The patient's oxygen was titrated to 2L, so far tolerating well. The patient states that she does not use O2 at home. The patient's left antecubital peripheral IV site is saline locked and asymptomatic, IV antibiotic is being hung at this time see APR. Discharge is uncertain at this time. The patient is able to ambulate to the bathroom with supervision assistance. Call mane is within reach.
[2017-02-04] MEDS: BIMATOPROST 0.01% OP SOLN 2.5 ML BTL OP SCH (21:07)
[2017-02-04] MEDS: SIMVASTATIN 20 MG TAB PO SCH (21:07)
[2017-02-05] VITALS (7 sets, daily range): BP systolic 123–144; BP diastolic 67–74; PULSE 72–97; TEMP 36.7–37.1; O2SAT 89–96
--- NOTE | 2017-02-05 00:05 | NUR ---
A: Upon assessment pt alert & oriented x 4. Paced on monitor. Ambulates to BR with supervision. Denies pain. Will continue to monitor.
[2017-02-05] MEDS: DOXYCYCLINE IV 100 MG in DEXTROSE 5% 100ML 100 ML IV SCH ×2 (00:35→11:08)
[2017-02-05] MEDS: AMPICILLIN/SULBACTAM SOD INJ 1,500 MG in SODIUM CHLORIDE 0.9% 100ML 100 ML IV SCH ×3 (02:13→14:07)
--- NOTE | 2017-02-05 04:00 | NUR ---
A: No change in pt condition. Resting in bed with eyes closed. Will continue to monitor.
[2017-02-05 06:26] LABS: BASO % 0.4 %; BASO ABS # 0.05 K/uL (0-0.2); EOS % 2.9 %; EOS ABS # 0.33 K/uL (0-0.5); HEMATOCRIT 31.8 % (37-47); HEMOGLOBIN 10.1 g/dL (12.0-16.0); IG# 0.05 K/uL (0.00-0.02); LYMPH % 10.7 %; LYMPH ABS # 1.24 K/uL (1.2-3.4); MEAN CELL VOLUME 92.4 fL (80-100); MEAN CORPUSCULAR HEMOGLOBIN 29.4 pg (25-34); MEAN CORPUSCULAR HGB CONC 31.8 g/dl (32-36); MEAN PLATELET VOLUME 8.2 fL (7.4-10.4); MONO % 11.7 %; MONO ABS # 1.35 K/uL (0.11-0.59); NEUT % 73.9 %; NEUT ABS # 8.54 K/uL (1.4-6.5); PLATELET COUNT 216 K/uL (130-400); RED CELL DISTRIBUTION WIDTH CV 14.2 % (11.5-14.5); RED CELL DISTRIBUTION WIDTH SD 48.4 fL (36.4-46.3); WHITE BLOOD COUNT 11.56 K/uL (4.8-10.8)
[2017-02-05 06:57] LABS: CALCIUM 8.7 mg/dl (8.5-10.1); CREATININE 0.55 mg/dl (0.60-1.20); POTASSIUM 3.7 mmol/L (3.5-5.1)
[2017-02-05 06:59] LABS: INR 3.5 (0.9-1.1)
[2017-02-05] MEDS: TIMOLOL MALEATE 0.5% OP SOLN 5 ML BTL OPB SCH (07:45)
[2017-02-05] MEDS: CYANOCOBALAMIN 100 MCG TAB (VIT B-12) PO SCH (07:48)
[2017-02-05] MEDS: ASCORBIC ACID 500 MG TAB PO SCH (07:48)
[2017-02-05] MEDS: EZETIMIBE 10MG TAB PO SCH (07:48)
[2017-02-05] MEDS: PANTOprazole SOD 40 MG TAB PO SCH (07:49)
[2017-02-05] MEDS: CALCIUM CARBONATE 1250MG TAB PO SCH (07:49)
[2017-02-05] MEDS: DOCUSATE SODIUM 100 MG CAP PO SCH (07:49)
--- NOTE | 2017-02-05 08:00 | NUR ---
A: Supervision to bathroom. IV SL. Continue with intermittent antibiotics. Tolerating AHA diet. Paced on monitor. Denying pain. Spo2 89% on RA. 1L nasal cannula placed on patient- 93%. Anticipated discharge uncertain at present time.
--- NOTE | 2017-02-05 12:00 | NUR ---
A: Patient alert and oriented x4. Saline lock LAC- continue with IV intermittent antibiotics. Paced on monitor. Supervision with transfers. Anticipated discharge to home this afternoon.
[2017-02-05] MEDS ORDERED: LCTX PO (15:44)
[2017-02-05] MEDS ORDERED: AMOX875T PO (15:44)
[2017-02-05] MEDS ORDERED: DOXY100C41 PO (15:44)
[2017-02-05] MEDS ORDERED: VNTHFA/IN INH (15:46)
--- NOTE | 2017-02-05 15:46 | Discharge Instructions ---
Discharge Instructions Date of Service Feb 05, 2017. Admission Reason for Admission: Chest Pain, Pna Discharge Discharge Diagnosis / Problem: pneumonia Discharge Goals Goal(s): Decrease discomfort, Improve function Activity Recommendations Activity Limitations: resume your previous activity . Instructions / Follow-Up Instructions / Follow-Up FOLLOWUP WITH FAMILY DOCTOR IN ONE WEEK FOLLOWUP WITH COUMADIN CLINIC FOR COUMADIN LEVELS CHECK IN 2-3 DAYS. Speech Therapy Discharge Instructions : * Recommendin.Slippery diet with thin liquids 2.GERD precautions: FULLY upright for meals and for 20-30 minutes after; keep head of bed elevated AT LEAST 30-degrees at all times--even sleep; alternate solids and liquids frequently during meals Current Hospital Diet Patient's current hospital diet: AHA Diet (Heart Healthy) Discharge Diet Recommended Diet: AHA Diet (Heart Healthy) Pending Studies Studies pending at discharge: no Medical Emergencies . Who to Call and When: Medical Emergencies: If at any time you feel your situation is an emergency, please call 911 immediately. . Non-Emergent Contact Non-Emergency issues call your: Primary Care Provider . . "Provider Documentation" section prepared by Thony Rueda. . VTE Core Measure Inpt VTE Proph given/why not?: Warfarin (Coumadin)
[2017-02-05] MEDS ORDERED: DOXYCYCLINE HYCLATE 100 MG CAP PO STA (15:52)
[2017-02-05] MEDS ORDERED: AMOXICILLIN/CLAVULANATE TAB 875 MG TAB PO STA (15:52)
--- NOTE | 2017-02-05 16:23 | NUR ---
A: Pt discharged this shift. IV site removed on previous shift. Heart monitor removed. Patient declines assessment due to being discharged. Discharge instructions given to patient who verbalizes understanding. Patient is A&Ox4. Family members also present at bedside. Patient declines wheelchair escort to the front. Patient has been paced on the monitor. Coumadin held due to INR 3.5.
--- NOTE | 2017-02-05 18:22 | Progress Note ---
Internal Med Progress Note Date of Service: Feb 05, 2017. Provider Documentation: SUBJECTIVE: resting comfortably passed two step cough and sob much improved afebrile eating fine wants to be discharged OBJECTIVE: Vital Signs-as noted below Exam: General-alert and oriented. Not in distress ENT-Normal hearing Neck-no neck masses supple Lungs-cta b/l no wheezing no crackles Heart-S1 and S2 heard regular rate and rthym, no murmurs Abdomen-Soft bowel sounds present non tender no distension Extremities-no edema no erythema Neuro-alert and awake moves extremities Lab data as noted below. ASSESSMENT & PLAN: : This is an 86-year-old female who presents with pneumonia. 1.Multi ,lobar pneumonia. The patient feeling weak and cough. Failed outpatient Z-YOGI. Possible aspiration. Started on IV doxycycline and IV Unasyn. much improved seen by speech and recommendations given: Recommendin.Slippery diet with thin liquids 2.GERD precautions: FULLY upright for meals and for 20-30 minutes after; keep head of bed elevated AT LEAST 30-degrees at all times--even sleep; alternate solids and liquids frequently during meals discharged on Augmentin and doxycycline. 2. Chest pains mostly from pneumonia. Serial Ce negative CTA chest no PE. Mediastinal lymphadenopathy mostly reactive. Currently asymptomatic. 3. History of atrial fibrillation status post pacemaker. Heart rate is under control on Coumadin. INR is 3.5 today. f/u with coumadin clinic 4. Hyperlipidemia. Continue statin and Zetia. 5. Gastroesophageal reflux disease. Continue Nexium. discharged home Vital Signs: Date Time Temp Pulse Resp B/P (MAP) Pulse Ox O2 Delivery O2 Flow Rate FiO2 02/05/17 16:05 36.7 80 18 92 02/05/17 15:38 36.7 80 18 129/74 (92) 92 Room Air 02/05/17 11:23 36.7 72 18 123/67 (85) 96 Room Air 02/05/17 10:46 92 02/05/17 08:14 93 Nasal Cannula 1.0 02/05/17 07:39 37.0 72 18 144/71 (95) 89 Room Air 02/05/17 04:55 37.1 97 19 125/72 (89) 90 Nasal Cannula 2.0 02/05/17 04:01 Nasal Cannula 2.0 02/05/17 00:05 Nasal Cannula 2.0 02/04/17 23:38 37.6 80 16 131/70 (90) 97 02/04/17 22:03 92 99 Nasal Cannula 2.0 02/04/17 20:00 Nasal Cannula 2.0 02/04/17 19:04 36.8 82 18 104/61 (75) 95 Nasal Cannula 3.0 Lab Results: Results Past 24 Hours Test 02/05/17 06:00 Range/Units White Blood Count 11.56 4.8-10.8 K/uL Red Blood Count 3.44 4.2-5.4 M/uL Hemoglobin 10.1 12.0-16.0 g/dL Hematocrit 31.8 37-47 % Mean Corpuscular Volume 92.4 80-100 fL Mean Corpuscular Hemoglobin 29.4 25-34 pg Mean Corpuscular Hemoglobin Concent 31.8 32-36 g/dl Platelet Count 216 130-400 K/uL Mean Platelet Volume 8.2 7.4-10.4 fL Neutrophils (%) (Auto) 73.9 % Lymphocytes (%) (Auto) 10.7 % Monocytes (%) (Auto) 11.7 % Eosinophils (%) (Auto) 2.9 % Basophils (%) (Auto) 0.4 % Neutrophils # (Auto) 8.54 1.4-6.5 K/uL Lymphocytes # (Auto) 1.24 1.2-3.4 K/uL Monocytes # (Auto) 1.35 0.11-0.59 K/uL Eosinophils # (Auto) 0.33 0-0.5 K/uL Basophils # (Auto) 0.05 0-0.2 K/uL RDW Standard Deviation 48.4 36.4-46.3 fL RDW Coefficient of Variation 14.2 11.5-14.5 % Immature Granulocyte % (Auto) 0.4 % Immature Granulocyte # (Auto) 0.05 0.00-0.02 K/uL Prothrombin Time 36.2 9.0-12.0 SECONDS Prothromb Time International Ratio 3.5 0.9-1.1 Sodium Level 138 136-145 mmol/L Potassium Level 3.7 3.5-5.1 mmol/L Chloride Level 104 98-107 mmol/L Carbon Dioxide Level 30 21-32 mmol/L Anion Gap 4.0 3-11 mmol/L Blood Urea Nitrogen 7 7-18 mg/dl Creatinine 0.55 0.60-1.20 mg/dl Est Creatinine Clear Calc Drug Dose 73.8 ml/min Estimated GFR () 99.1 Estimated GFR (Non- 85.5 BUN/Creatinine Ratio 12.1 10-20 Random Glucose 121 70-99 mg/dl Calcium Level 8.7 8.5-10.1 mg/dl Magnesium Level 1.9 1.8-2.4 mg/dl
--- NOTE | 2017-02-05 18:28 | Discharge Summary ---
Discharge Summary Date of Service Feb 05, 2017. Discharge Summary Admission Date: Feb 03, 2017 at 10:22 Discharge Date: Feb 05, 2017 Discharge Disposition: Home Principal Diagnosis: MULTIFOCAL PNEUMONIA Secondary Diagnoses/Problems: paroxysmal atrial fibrillation status post pacemaker, history of recurrent pneumonia, history of hyperlipidemia, history of spinal stenosis, Procedures: CTA CHEST: 1. No evidence of pulmonary embolus. 2. Patchy consolidation in all 5 lobes to varying degrees concerning for multifocal pneumonia. Element of atelectasis likely coexists, especially in the lingula. 3. Mediastinal and hilar lymphadenopathy, which could be reactive given the findings of pneumonia. 4. Main pulmonary artery enlargement suggests pulmonary hypertension. 5. Prominent thyroid nodules. Medication Reconciliation New Medications: Albuterol Hfa (Ventolin Hfa) 200 Puffs/55905 Mcg Aers 2 PUFFS INH Q6H PRN for SOB/Wheezing, #1 INHALER Amoxicillin & Pot Clavulanate (Augmentin 875-125 mg) 1 Tab Tab 875 MG PO BID, #14 TAB Doxycycline (Monohydrate) (Monodox) 100 Mg Cap 100 MG PO BID, #14 CAP Lactobacillus Acidophilus (Lactinex) Tab 2 TAB PO BID for 10 Days, #40 TAB Continued Medications: Ascorbic Acid (Vitamin C) 250 Mg Chw 250 MG PO DAILY Bimatoprost (Lumigan) 0.01 % Renay 1 DROPS OP HS Calcium Carbonate (Calcium Carbonate) 600 Mg Tab 600 MG PO DAILY Cyanocobalamin (B-12) 100 Mcg Tab 100 MCG PO DAILY Docusate Sodium (Docusate Sodium) 100 Mg Cap 100 MG PO DAILY Esomeprazole Magnesium (Nexium) 40 Mg Capcr 40 MG PO DAILY, 0 Refills Ezetimibe (Zetia) 10 Mg Tab 10 MG PO DAILY Furosemide (Lasix) 20 Mg Tab 20 MG PO DAILY PRN for ADEMA Simvastatin (Zocor) 20 Mg Tab 20 MG PO QPM Timolol Maleate (Ophth) (Timolol Maleate) 0.5 % Renay 1 DROP OPB DAILY Warfarin Sod (Jantoven) 2 Mg Tab 2 MG PO UD Admission Information HPI (per Admitting provider): : This is an 86-year-old female with past medical history significant for paroxysmal atrial fibrillation status post pacemaker, history of recurrent pneumonia, history of hyperlipidemia, history of spinal stenosis, presents with not feeling well, Has on and off some dry cough. She saw her family doctor a few days back and was prescribed Z-YOGI, but she said it was not helping. She also had some chest pains, right lower side and midchest, mostly on coughing and moving around, but has a point tenderness, so she came to the ER and found to have pneumonia on x-ray. Hemodynamically stable. Denies any dizziness. Has headaches, has macular degeneration, has hearing problem. No nasal drainage. No sore throat, no difficulty swallowing. No nausea, no vomiting, no abdominal pain. Appetite has been poor for last few days. Ambulates okay at home. Sometimes uses cane. Normal bowel and bladder movements. No blood in the stools, no blood in the urine. No burning micturition. Currently, resting comfortably and hemodynamically stable. Physical Exam (per Admitting): GENERAL: The patient is of moderate build, not in distress. VITAL SIGNS: Temperature 37.2, pulse 82, respiratory rate 20, blood pressure 127/54, oxygen 97% on 3 liters. HEENT: No pallor, no icterus. Pupils equal, round, and reactive to light. NECK: No JVD, no neck masses, no carotid bruits. CARDIOVASCULAR: S1, S2 heard, regular rate and rhythm, no murmur, no gallop. RESPIRATORY SYSTEM: Normal AP diameter. No accessory muscle use. Mild bibasilar crackles. No wheezing. ABDOMEN: Soft, bowel sounds present. Nontender. No distention. CENTRAL NERVOUS SYSTEM: Cranial nerves II-XII grossly intact. Nonfocal. EXTREMITIES: Trace pedal edema, no erythema. Hospital Course : This is an 86-year-old female who presents with pneumonia. 1.Multi ,lobar pneumonia. The patient feeling weak and cough. Failed outpatient Z-YOGI. Possible aspiration. Started on IV doxycycline and IV Unasyn. much improved seen by speech and recommendations given: Recommendin.Slippery diet with thin liquids 2.GERD precautions: FULLY upright for meals and for 20-30 minutes after; keep head of bed elevated AT LEAST 30-degrees at all times--even sleep; alternate solids and liquids frequently during meals discharged on Augmentin and doxycycline. 2. Chest pains mostly from pneumonia. Serial Ce negative CTA chest no PE. Mediastinal lymphadenopathy mostly reactive. Currently asymptomatic. 3. History of atrial fibrillation status post pacemaker. Heart rate is under control on Coumadin. INR is 3.5 today. f/u with coumadin clinic 4. Hyperlipidemia. Continue statin and Zetia. 5. Gastroesophageal reflux disease. Continue Nexium. discharged home Total time spent on discharge = 35MINUTES This includes examination of the patient, discharge planning, medication reconciliation, and communication with other providers. Discharge Instructions Discharge Instructions Date of Service Feb 05, 2017. Admission Reason for Admission: Chest Pain, Pna Discharge Discharge Diagnosis / Problem: pneumonia Discharge Goals Goal(s): Decrease discomfort, Improve function Activity Recommendations Activity Limitations: resume your previous activity . Instructions / Follow-Up Instructions / Follow-Up FOLLOWUP WITH FAMILY DOCTOR IN ONE WEEK FOLLOWUP WITH COUMADIN CLINIC FOR COUMADIN LEVELS CHECK IN 2-3 DAYS. Speech Therapy Discharge Instructions : * Recommendin.Slippery diet with thin liquids 2.GERD precautions: FULLY upright for meals and for 20-30 minutes after; keep head of bed elevated AT LEAST 30-degrees at all times--even sleep; alternate solids and liquids frequently during meals Current Hospital Diet Patient's current hospital diet: AHA Diet (Heart Healthy) Discharge Diet Recommended Diet: AHA Diet (Heart Healthy) Pending Studies Studies pending at discharge: no Medical Emergencies . Who to Call and When: Medical Emergencies: If at any time you feel your situation is an emergency, please call 911 immediately. . Non-Emergent Contact Non-Emergency issues call your: Primary Care Provider . . "Provider Documentation" section prepared by Thony Rueda. . VTE Core Measure Inpt VTE Proph given/why not?: Warfarin (Coumadin)
[2017-04-01] MEDS ORDERED: DXY100 PO (10:59)
== END 2017-02-05 16:27 | disposition home or self-care (01) | DRG 179 ==
LOC: EDBD 07:43 → C.EDB 07:44 → C.MED 10:22 → ENRESERV 10:50
PROVIDERS: ADMIT Internal Medicine; ATTEND Internal Medicine
DX: J69.0 Pneumonitis due to inhalation of food and vomit (principal); R07.9 Chest pain, unspecified; I48.0 Paroxysmal atrial fibrillation; K21.9 Gastro-esophageal reflux disease without esophagitis; E78.5 Hyperlipidemia, unspecified; Z95.0 Presence of cardiac pacemaker; Z79.01 Long term (current) use of anticoagulants; Z79.899 Other long term (current) drug therapy

== ENCOUNTER 2017-03-25 15:20 | Emergency (ER) | payer OTHER, MEDICARE ==
[~2017-03-25] VITALS: Ht 160 cm; Wt 81.4 kg
[~2017-03-25 15:20] MED LIST changes: +ASCO250C3 PO; +BIMA0.01 OP; -BIMA0.038 OPB; -BTH25 PO; +CALC-392 PO; -CALC500C70 PO; -CHOL100010 PO; -CMD2 PO; -CMD3 PO; -CYAN10005 PO; +CYAN1TAB2 PO; +DOCU100C31 PO; +FURO-85 PO; -LSX20 PO; -SENN-65 PO; -TIMO0.2534 OPB; +VNTHFA/IN INH; +WARF2TAB8 PO; +[UNRECOGNIZED DRUG - CODE] OPB
[2017-03-25 15:24] VITALS: Ht 160 cm; Wt 81.4 kg
--- NOTE | 2017-03-25 15:50 | EMERGENCY ROOM VISIT NOTE ---
History Report prepared by Josiah: Jordan Dickinson Under the Supervision of: Dr. Daily Gonzales D.O. First contact with patient: 15:26 Chief Complaint: FLU LIKE SX Stated Complaint: NAUSEA History of Present Illness The patient is a 86 year old female who presents to the Emergency Room with complaints of moderate flu-like symptoms that began recently. She has a past medical history of atrial fibrillation with a pacemaker in place, recent pneumonia that occurred 6 weeks ago, and macular degeneration. Over the past couple of days, the patient has been taking care of her daughter, who lives with her, who was recently diagnosed with influenza. She has recently begun to exhibit a multitude of symptoms including a headache, diaphoresis, chills, rhinorrhea, body aches, and a dry cough. She denies any fevers, congestion, sore throat, chest pain, or nausea. She did receive her influenza immunization. Source of History: patient Onset: recently Position: other (Global) Symptom Intensity: moderate Quality: other (Flu-like symptoms) Timing: constant Associated Symptoms: + chills, + headache, + diaphoresis, + cough, No fevers , No sorethroat, No chest pain, No nausea Note: She is experiencing rhinorrhea. Review of Systems See HPI for pertinent positives & negatives. A total of 10 systems reviewed and were otherwise negative. Past Medical & Surgical Medical Problems: (1) Atrial Fibrillation (2) Cardiac Pacemaker In Situ (3) Chest pain (4) Hyperlipidemia Nec/Nos (5) Personal History, Pneumonia (Recurrent) (6) Pnemonia (7) Spinal Stenosis-Lumbar Family History Omitted secondary to the patient's age. Social History Smoking Status: Never Smoker Drug Use: none Marital Status: Occupation Status: retired Current/Historical Medications Scheduled Ascorbic Acid (Vitamin C), 250 MG PO DAILY Benzonatate (Tessalon Perles), 100 MG PO Q8 Bimatoprost (Lumigan), 1 DROPS OP HS Calcium Carbonate (Calcium Carbonate), 600 MG PO DAILY Cephalexin (Keflex), 1 CAP PO BID Cyanocobalamin (B-12), 100 MCG PO DAILY Docusate Sodium (Docusate Sodium), 100 MG PO DAILY Esomeprazole Magnesium (Nexium), 40 MG PO DAILY Ezetimibe (Zetia), 10 MG PO DAILY Simvastatin (Zocor), 20 MG PO QPM Timolol Maleate (Ophth) (Timolol Maleate), 1 DROP OPB DAILY Warfarin Sod (Jantoven), 2 MG PO UD Scheduled PRN Albuterol Hfa (Ventolin Hfa), 2 PUFFS INH Q6H PRN for SOB/Wheezing Furosemide (Lasix), 20 MG PO DAILY PRN for ADEMA Allergies Coded Allergies: Sulfa Drugs (Verified Allergy, Unknown, SWEAT, RASH, VOMIT, 02/03/17) Tramadol (Unverified Allergy, Unknown, ., 02/03/17) Morphine (Verified Adverse Reaction, Intermediate, vomiting, 02/03/17) Physical Exam Vital Signs Date Time Temp Pulse Resp B/P (MAP) Pulse Ox O2 Delivery O2 Flow Rate FiO2 03/25/17 19:02 37.0 86 24 149/71 95 03/25/17 18:14 37.0 03/25/17 17:01 71 22 151/78 94 Room Air 03/25/17 16:27 89 03/25/17 16:10 83 18 151/71 96 Room Air 03/25/17 15:24 36.8 91 20 163/74 93 Room Air Physical Exam GENERAL: alert, mildly ill appearing, well nourished, no distress, non-toxic EYE EXAM: normal conjunctiva, PERRL and EOM's grossly intact OROPHARYNX: no exudate, no erythema, lips, buccal mucosa, and tongue normal and mucous membranes are moist, no sinus or mastoid tenderness to percussion NECK: supple, no nuchal rigidity, no adenopathy, non-tender LUNGS: Clear to auscultation. Normal chest wall mechanics, no wheezes/rhonchi/ rales HEART: no murmurs, S1 normal and S2 normal ABDOMEN: abdomen soft, non-tender, normo-active bowel sounds, no masses, no rebound or guarding. BACK: Back is symmetrical on inspection and there is no deformity, no midline tenderness, no CVA tenderness. SKIN: no rashes and no bruising UPPER EXTREMITIES: upper extremities are grossly normal. Normal range of motion and normal pulses. LOWER EXTREMITIES: No pitting edema. Normal range of motion and normal pulses. NEURO EXAM: Normal sensorium, cranial nerves II-XII grossly intact, normal speech, no gross weakness of arms, no gross weakness of legs. Medical Decision & Procedures ER Provider Diagnostic Interpretation: Radiology results have been interpreted by the radiologist and reviewed by me. CHEST 2 VIEWS ROUTINE HISTORY: cough, fever COMPARISON: Chest 02/03/2017. FINDINGS: Left-sided pacemaker is again noted. No pleural effusions. No pneumothorax. Mild interstitial thickening is likely chronic. No new focal lung consolidations. No evidence for pulmonary edema. The heart is top normal in size. Lumbar spinal fusion hardware is noted. IMPRESSION: Mild interstitial thickening which is likely chronic. Otherwise, no acute process within the chest. Electronically signed by: Kevin Young M.D. 03/25/2017 5:09 PM Dictated Date/Time: 03/25/2017 5:07 PM Laboratory Results 03/25/17 15:58 Red Blood Count 4.26, Mean Corpuscular Volume 93.0, Mean Corpuscular Hemoglobin 30.0, Mean Corpuscular Hemoglobin Concent 32.3, Mean Platelet Volume 8.0, Neutrophils (%) (Auto) 77.3, Lymphocytes (%) (Auto) 8.7, Monocytes (%) (Auto) 9.0, Eosinophils (%) (Auto) 4.4, Basophils (%) (Auto) 0.3, Neutrophils # (Auto) 7.31, Lymphocytes # (Auto) 0.82, Monocytes # (Auto) 0.85, Eosinophils # (Auto) 0.42, Basophils # (Auto) 0.03 03/25/17 15:58 Test 03/25/17 15:55 03/25/17 15:58 03/25/17 16:05 03/25/17 16:06 Urine Color YELLOW Urine Appearance CLEAR (CLEAR) Urine pH 6.5 (4.5-7.5) Urine Specific [place] 1.014 (1.000-1.030) Urine Protein NEG (NEG) Urine Glucose (UA) NEG (NEG) Urine Ketones NEG (NEG) Urine Occult Blood NEG (NEG) Urine Nitrite NEG (NEG) Urine Bilirubin NEG (NEG) Urine Urobilinogen NEG (NEG) Urine Leukocyte Esterase SMALL (NEG) Urine WBC (Auto) 5-10 /hpf (0-5) Urine RBC (Auto) 0-4 /hpf (0-4) Urine Hyaline Casts (Auto) 1-5 /lpf (0-5) Urine Epithelial Cells (Auto) >30 /lpf (0-5) Urine Bacteria (Auto) 4+ (NEG) White Blood Count 9.46 K/uL (4.8-10.8) Red Blood Count 4.26 M/uL (4.2-5.4) Hemoglobin 12.8 g/dL (12.0-16.0) Hematocrit 39.6 % (37-47) Mean Corpuscular Volume 93.0 fL (80-100) Mean Corpuscular Hemoglobin 30.0 pg (25-34) Mean Corpuscular Hemoglobin Concent 32.3 g/dl (32-36) Platelet Count 181 K/uL (130-400) Mean Platelet Volume 8.0 fL (7.4-10.4) Neutrophils (%) (Auto) 77.3 % Lymphocytes (%) (Auto) 8.7 % Monocytes (%) (Auto) 9.0 % Eosinophils (%) (Auto) 4.4 % Basophils (%) (Auto) 0.3 % Neutrophils # (Auto) 7.31 K/uL (1.4-6.5) Lymphocytes # (Auto) 0.82 K/uL (1.2-3.4) Monocytes # (Auto) 0.85 K/uL (0.11-0.59) Eosinophils # (Auto) 0.42 K/uL (0-0.5) Basophils # (Auto) 0.03 K/uL (0-0.2) RDW Standard Deviation 51.0 fL (36.4-46.3) RDW Coefficient of Variation 15.0 % (11.5-14.5) Immature Granulocyte % (Auto) 0.3 % Immature Granulocyte # (Auto) 0.03 K/uL (0.00-0.02) Prothrombin Time 19.6 SECONDS (9.0-12.0) Prothromb Time International Ratio 1.9 (0.9-1.1) Anion Gap 8.0 mmol/L (3-11) Est Creatinine Clear Calc Drug Dose 56.9 ml/min Estimated GFR () 87.0 Estimated GFR (Non- 75.1 BUN/Creatinine Ratio 18.2 (10-20) Calcium Level 9.0 mg/dl (8.5-10.1) Magnesium Level 2.0 mg/dl (1.8-2.4) Total Bilirubin 0.3 mg/dl (0.2-1) Aspartate Amino Transf (AST/SGOT) 35 U/L (15-37) Alanine Aminotransferase (ALT/SGPT) 52 U/L (12-78) Alkaline Phosphatase 94 U/L (45-117) Troponin I < 0.015 ng/ml (0-0.045) Pro-B-Type Natriuretic Peptide 110 pg/ml (0-1800) Total Protein 8.2 gm/dl (6.4-8.2) Albumin 3.5 gm/dl (3.4-5.0) Globulin 4.7 gm/dl (2.5-4.0) Albumin/Globulin Ratio 0.7 (0.9-2) Bedside Lactic Acid Venous 0.88 mmol/L (0.90-1.70) Influenza Type A Antigen Neg for Influ A (NEG) Influenza Type B Antigen Neg for Influ B (NEG) Laboratory results per my review. Medications Administered Medications (Trade) Dose Ordered Sig/Zoran Route Start Time Stop Time Status Last Admin Dose Admin Albuterol/ Ipratropium (Duoneb) 3 ml NOW STAT INH 03/25/17 17:31 03/25/17 17:32 DC 03/25/17 17:38 3 ML Benzonatate (Tessalon Perles Cap) 100 mg NOW ONCE PO 03/25/17 18:15 03/25/17 18:16 DC 03/25/17 18:41 100 MG Albuterol (Ventolin Hfa Inhaler) 2 puffs NOW ONCE INH 03/25/17 18:15 03/25/17 18:16 DC 03/25/17 18:40 2 PUFFS Cephalexin Monohydrate (Keflex Cap) 500 mg NOW ONCE PO 03/25/17 18:45 03/25/17 18:46 DC 03/25/17 18:41 500 MG ECG Per My Interpretation Indication: nausea Rate (beats per minute): 83 Rhythm: other (Paced) Findings: left axis deviation, other (Mildly prolonged QT and QRS consistent with pacer) ED Course 1526: The patient was evaluated in room C7. A complete history and physical exam was performed. 173: Ordered DuoNeb 3 ml INH 1815: Ordered Albuterol 2 puffs INH, Benzonatate 100 mg PO 1754: The patient is doing well and is ready to go home. 1845: Ordered Keflex Cap 500 mg PO 1850: Upon reevaluation, the patient is feeling better. I discussed the findings and the treatment plan with the patient. She verbalizes agreement and understanding. She was discharged home. Medical Decision Differential diagnosis: Etiologies such as viral syndrome, otitis, pharyngitis, pneumonia, influenza, meningitis, urinary tract infection, sepsis, bacteremia, as well as others were entertained. Patient well-appearing despite complaints. Labs, imaging, vital signs reassuring. Patient given medications here to help with symptomatic control. Discussed with patients rest, hydration, OTC meds, close follow-up with family doctor, symptoms to watch and return for, she verbalized understanding was agreeable with plan. No evidence of bacteremia/sepsis, no evidence of deep space infection, no evidence of additional cardiac pathology. No GI symptoms to warrant additional abdominal imaging. Patient anxious to go home, got dressed and was asking to leave prior to all results being completed. Patient ambulating with a steady gait and tolerating by mouth bedside. Medication Reconcilliation Current Medication List: was personally reviewed by me Blood Pressure Screening Patient's blood pressure: Elevated blood pressure Blood pressure disposition: Referred to PCP Impression Primary Impression: Influenza-like symptoms Additional Impressions: Upper respiratory infection UTI (urinary tract infection) Scribe Attestation The scribe's documentation has been prepared under my direction and personally reviewed by me in its entirety. I confirm that the note above accurately reflects all work, treatment, procedures, and medical decision making performed by me. Departure Information Dispostion Home / Self-Care Prescriptions Cephalexin (KEFLEX) 500 Mg Cap 1 CAP PO BID for 7 Days, #14 CAP Prov: Daily Gonzales, DO 03/25/17 Benzonatate (Tessalon Perles) 100 Mg Cap 100 MG PO Q8 for Cough, #30 CAP Prov: Daily Gonzales, DO 03/25/17 Referrals Anthony Lanier PA-C Forms HOME CARE DOCUMENTATION FORM, IMPORTANT VISIT INFORMATION Patient Instructions ED URI Viral, ED UTI Cystitis Female, ED Viral Syndrome, My [facility] Additional Instructions Please rest and drink plenty of water. You may use Tylenol and ibuprofen as needed for pain. Please take the antibiotic as prescribed. Please: Follow up with your family doctor to recheck your symptoms and assure they're getting better. Please avoid contact with other people who could become ill also. Please take your regular medications as prescribed. Please have your family doctor recheck your Coumadin number, INR, as it was just slightly low today at 1.9. If you have persistent or worsening fevers or chills, worsening pain or body aches, dizziness, vomiting, diarrhea, trouble breathing, worsening cough or noticed blood in your sputum, develop a rash or sores, chest pain, or you've any other new concerns, please return to the emergency room. Problem Qualifiers Additional Impressions: Upper respiratory infection URI type: unspecified URI Qualified Codes: J06.9 - Acute upper respiratory infection, unspecified UTI (urinary tract infection) Urinary tract infection type: acute cystitis Hematuria presence: without hematuria Qualified Codes: N30.00 - Acute cystitis without hematuria
[2017-03-25 16:12] LABS: BASO % 0.3 %; BASO ABS # 0.03 K/uL (0-0.2); EOS % 4.4 %; EOS ABS # 0.42 K/uL (0-0.5); HEMATOCRIT 39.6 % (37-47); HEMOGLOBIN 12.8 g/dL (12.0-16.0); IG# 0.03 K/uL (0.00-0.02); LYMPH % 8.7 %; LYMPH ABS # 0.82 K/uL (1.2-3.4); MEAN CORPUSCULAR HGB CONC 32.3 g/dl (32-36); MONO ABS # 0.85 K/uL (0.11-0.59); NEUT % 77.3 %; NEUT ABS # 7.31 K/uL (1.4-6.5); PLATELET COUNT 181 K/uL (130-400); WHITE BLOOD COUNT 9.46 K/uL (4.8-10.8)
[2017-03-25 16:29] LABS: ALBUMIN 3.5 gm/dl (3.4-5.0); ALT/SGPT 52 U/L (12-78); BLOOD UREA NITROGEN 13 mg/dl (7-18); CARBON DIOXIDE 28 mmol/L (21-32); CREATININE 0.73 mg/dl (0.60-1.20); GLUCOSE 107 mg/dl (70-99); SODIUM 138 mmol/L (136-145)
[2017-03-25 16:34] LABS: ALKALINE PHOSPHATASE 94 U/L (45-117); AST/SGOT 35 U/L (15-37); TOTAL PROTEIN 8.2 gm/dl (6.4-8.2)
[2017-03-25 16:48] LABS: INFLUENZA B ANTIGEN Neg for Influ B (NEG)
--- NOTE | 2017-03-25 17:10 | DIAGNOSTIC IMAGING REPORT ---
CHEST 2 VIEWS ROUTINE HISTORY: cough, fever COMPARISON: Chest 02/03/2017. FINDINGS: Left-sided pacemaker is again noted. No pleural effusions. No pneumothorax. Mild interstitial thickening is likely chronic. No new focal lung consolidations. No evidence for pulmonary edema. The heart is top normal in size. Lumbar spinal fusion hardware is noted. IMPRESSION: Mild interstitial thickening which is likely chronic. Otherwise, no acute process within the chest. Electronically signed by: Kevin Young M.D. 03/25/2017 5:09 PM Dictated Date/Time: 03/25/2017 5:07 PM
[2017-03-25] MEDS ORDERED: ALBUT/IPRATROP 3MG/0.5MG NEB 3 ML VIAL INH STA (17:31)
[2017-03-25 18:15] LABS: INR 1.9 (0.9-1.1)
[2017-03-25] MEDS ORDERED: BENZONATATE 100MG CAP PO ONE (18:15)
[2017-03-25] MEDS ORDERED: ALBUTEROL HFA 8 GM INHALER INH ONE (18:15)
[2017-03-25] MEDS ORDERED: CEPH-571 PO (18:43)
[2017-03-25] MEDS ORDERED: BENZ100C84 PO (18:43)
[2017-03-25] MEDS ORDERED: CEPHALEXIN MONOHYDRATE 250 MG CAP PO ONE (18:45)
[2017-03-25 19:02] VITALS: BP 149/71; PULSE 86; TEMP 37; O2SAT 95
--- NOTE | 2017-03-27 13:09 | Pharmacy Progress Note ---
ED Pharmacist Culture FollowUp Date of Service: Mar 27, 2017. Patient was sent home with a prescription for keflex 500 mg BID x 7 days, which should cover the E. coli growing from the patient's urine culture.
== END 2017-03-25 18:55 | disposition home or self-care (01) ==
LOC: C.EDB 15:21 → C.EDC 18:55
DX: J06.9 Acute upper respiratory infection, unspecified (principal); N39.0 Urinary tract infection, site not specified; R51 Headache; R61 Generalized hyperhidrosis; J34.89 Other specified disorders of nose and nasal sinuses; R52 Pain, unspecified; I48.91 Unspecified atrial fibrillation; Z95.0 Presence of cardiac pacemaker; H35.30 Unspecified macular degeneration; E78.5 Hyperlipidemia, unspecified; Z79.01 Long term (current) use of anticoagulants; Z79.899 Other long term (current) drug therapy; Z88.2 Allergy status to sulfonamides; Z88.5 Allergy status to narcotic agent

== ENCOUNTER 2017-03-27 14:03 | Inpatient (IN) | payer OTHER, MEDICARE ==
[~2017-03-27] VITALS: Ht 157.5 cm; Wt 79.0 kg
[~2017-03-27 14:03] MED LIST changes: +BENZ100C84 PO; +CEPH-571 PO
[2017-03-27] MEDS ORDERED: KETOROLAC TROMETHAMINE 30 MG/ML VIAL IV STA (14:13)
[2017-03-27] MEDS ORDERED: SODIUM CHLORIDE 0.9% 500ML 500 ML IV STA (14:13)
--- NOTE | 2017-03-27 14:39 | EMERGENCY ROOM VISIT NOTE ---
History Report prepared by Josiah: Quincy Mercado Under the Supervision of: Dr. Patrick Coburn M.D. First contact with patient: 14:07 Chief Complaint: FLU LIKE SX Stated Complaint: DRY HEAVES, CAN'T HOLD ANYTHING DOWN History of Present Illness The patient is an 86 year old female who presents to the Emergency Room with complaints of persistent flu-like symptoms that began 3 days prior to arrival. The patient states that she was in the Emergency Department on Sunday, two days ago and was sent home on Keflex for a possible UTI. She notes that she has been taking her Keflex as prescribed. Per the daughter, since her discharge she has not gotten out of bed and appears very fatigued. The patient's main complaint at this time is global bodily aches. She is coughing, but denies any abdominal pain. Source of History: patient, family Onset: 3 days [employer] Position: other (Global) Quality: other (Flu-Like) Timing: other (Persistent) Associated Symptoms: + cough, + fatigue, No abdominal pain Review of Systems See HPI for pertinent positives & negatives. A total of 10 systems reviewed and were otherwise negative. Past Medical & Surgical Medical Problems: (1) Atrial Fibrillation (2) Cardiac Pacemaker In Situ (3) Chest pain (4) Flu (5) Hyperlipidemia Nec/Nos (6) Personal History, Pneumonia (Recurrent) (7) Pnemonia (8) Spinal Stenosis-Lumbar Family History Omitted secondary to age. Social History Smoking Status: Never Smoker Drug Use: none Marital Status: Occupation Status: retired Current/Historical Medications Scheduled Ascorbic Acid (Vitamin C), 250 MG PO DAILY Bimatoprost (Lumigan), 1 DROPS OP HS Calcium Carbonate (Calcium Carbonate), 600 MG PO DAILY Cephalexin Monohydrate (Keflex), 500 MG PO BID Clotrimazole (Topical) (Clotrimazole Af), 1 APPLN TD BID Cyanocobalamin (B-12), 100 MCG PO DAILY Docusate Sodium (Docusate Sodium), 100 MG PO DAILY Dorzolamide Hcl-Timolol Maleat (Cosopt Oph), 1 DROPS OPB BID Esomeprazole Magnesium (Nexium), 40 MG PO DAILY Ezetimibe (Zetia), 10 MG PO DAILY Furosemide (Lasix), 20 MG PO DAILY Methenamine Hippurate (Methenamine Hippurate), 1 GM PO QPM Pilocarpine Hcl (Isopto Carpine), 1 DROP OP QID Simvastatin (Zocor), 20 MG PO QPM Warfarin Sod (Jantoven), 2 MG PO QPM Scheduled PRN Albuterol Hfa (Ventolin Hfa), 2 PUFFS INH Q6H PRN for SOB/Wheezing Benzonatate (Tessalon Perles), 100 MG PO Q8 PRN for Cough Betamethasone Dipropionate Aug (Diprolene Af), 1 APPLN TOP BID PRN for AFFECTED SKIN Allergies Coded Allergies: Acetaminophen (Verified Allergy, Unknown, ON PHARMACY LIST, 03/27/17) Nitrofuran Derivatives (Verified Allergy, Unknown, ON PHARMACY LIST, ) Nitrofurantoin (Verified Allergy, Unknown, ON PHARMACY LIST, 03/27/17) Oxycodone (Verified Allergy, Unknown, ON PHARMACY LIST, 03/27/17) Sulfa Drugs (Verified Allergy, Unknown, SWEAT, RASH, VOMIT, 03/27/17) Tramadol (Verified Allergy, Unknown, ., 03/27/17) Morphine (Verified Adverse Reaction, Intermediate, vomiting, 03/27/17) Physical Exam Vital Signs Date Time Temp Pulse Resp B/P (MAP) Pulse Ox O2 Delivery O2 Flow Rate FiO2 03/27/17 15:24 38.5 95 24 154/67 91 Room Air 03/27/17 14:44 113 03/27/17 14:41 95 Room Air 03/27/17 14:05 37.6 99 20 158/79 91 Physical Exam GENERAL: Patient is a healthy-appearing well-nourished female. HEAD: Normocephalic atraumatic EYES: Ocular movements intact pupils equal and react to light OROPHARYNX mucous membranes are moist no exudates present no erythema or edema present NECK: Supple no nuchal rigidity CHEST: Good equal expansion LUNGS: Clear and equal to auscultation CARDIAC: Normal S1 and S2 ABDOMEN: Soft nontender no guarding BACK: No CVA tenderness EXTREMITIES: No pain upon palpation normal muscle strength in all groups no clubbing cyanosis or edema NEURO: Patient is following commands and answering questions appropriately. Alert and oriented x3 Cranial Nerves 2-12 grossly intact Medical Decision & Procedures ER Provider Diagnostic Interpretation: Radiology results as stated below per my review and radiologist interpretation: CHEST ONE VIEW PORTABLE CLINICAL HISTORY: Shortness of breath. COMPARISON STUDY: Chest CT February 03, 2017 and chest radiograph January 22, 2018. FINDINGS: A left subclavian biventricular pacer is in place. Cardiomegaly is unchanged. There is no evidence for pulmonary edema. There is no pneumothorax or pleural effusion. There is mild right lower lung opacity. IMPRESSION: 1. Mild right lower lung opacity which may reflect pneumonia or atelectasis. 2. Mild cardiomegaly without evidence of pulmonary edema. Electronically signed by: Darryl Bay M.D. 03/27/2017 2:44 PM Dictated Date/Time: 03/27/2017 2:41 PM Laboratory Results 03/27/17 15:00 Red Blood Count 4.01, Mean Corpuscular Volume 92.0, Mean Corpuscular Hemoglobin 30.2, Mean Corpuscular Hemoglobin Concent 32.8, Mean Platelet Volume 8.3, Neutrophils (%) (Auto) 82.7, Lymphocytes (%) (Auto) 5.1, Monocytes (%) (Auto) 11.4, Eosinophils (%) (Auto) 0.1, Basophils (%) (Auto) 0.4, Neutrophils # (Auto ) 6.28, Lymphocytes # (Auto) 0.39, Monocytes # (Auto) 0.87, Eosinophils # (Auto ) 0.01, Basophils # (Auto) 0.03 03/27/17 15:00 Test 03/27/17 14:53 03/27/17 15:00 Influenza Type A Antigen POS for Influ A (NEG) Influenza Type B Antigen Neg for Influ B (NEG) White Blood Count 7.60 K/uL (4.8-10.8) Red Blood Count 4.01 M/uL (4.2-5.4) Hemoglobin 12.1 g/dL (12.0-16.0) Hematocrit 36.9 % (37-47) Mean Corpuscular Volume 92.0 fL (80-100) Mean Corpuscular Hemoglobin 30.2 pg (25-34) Mean Corpuscular Hemoglobin Concent 32.8 g/dl (32-36) Platelet Count 146 K/uL (130-400) Mean Platelet Volume 8.3 fL (7.4-10.4) Neutrophils (%) (Auto) 82.7 % Lymphocytes (%) (Auto) 5.1 % Monocytes (%) (Auto) 11.4 % Eosinophils (%) (Auto) 0.1 % Basophils (%) (Auto) 0.4 % Neutrophils # (Auto) 6.28 K/uL (1.4-6.5) Lymphocytes # (Auto) 0.39 K/uL (1.2-3.4) Monocytes # (Auto) 0.87 K/uL (0.11-0.59) Eosinophils # (Auto) 0.01 K/uL (0-0.5) Basophils # (Auto) 0.03 K/uL (0-0.2) RDW Standard Deviation 51.3 fL (36.4-46.3) RDW Coefficient of Variation 15.1 % (11.5-14.5) Immature Granulocyte % (Auto) 0.3 % Immature Granulocyte # (Auto) 0.02 K/uL (0.00-0.02) Prothrombin Time 20.7 SECONDS (9.0-12.0) Prothromb Time International Ratio 2.0 (0.9-1.1) Anion Gap 6.0 mmol/L (3-11) Est Creatinine Clear Calc Drug Dose 58.0 ml/min Estimated GFR () 90.0 Estimated GFR (Non- 77.7 BUN/Creatinine Ratio 14.3 (10-20) Calcium Level 8.8 mg/dl (8.5-10.1) Total Bilirubin 0.4 mg/dl (0.2-1) Direct Bilirubin 0.1 mg/dl (0-0.2) Aspartate Amino Transf (AST/SGOT) 70 U/L (15-37) Alanine Aminotransferase (ALT/SGPT) 94 U/L (12-78) Alkaline Phosphatase 98 U/L (45-117) Total Creatine Kinase 85 U/L (26-192) Creatine Kinase MB < 0.5 ng/ml (0.5-3.6) Creatine Kinase MB Ratio (0-3.0) Troponin I < 0.015 ng/ml (0-0.045) Pro-B-Type Natriuretic Peptide 326 pg/ml (0-1800) Total Protein 8.0 gm/dl (6.4-8.2) Albumin 3.2 gm/dl (3.4-5.0) Procalcitonin 0.06 ng/ml (0-0.5) Labs reviewed by ED physician. Medications Administered Medications (Trade) Dose Ordered Sig/Zoran Route Start Time Stop Time Status Last Admin Dose Admin Sodium Chloride 500 ml @ 999 mls/hr Q31M STAT IV 03/27/17 14:13 03/27/17 14:43 DC 03/27/17 15:19 999 MLS/HR Ketorolac Tromethamine (Toradol Inj) 30 mg NOW STAT IV 03/27/17 14:13 03/27/17 14:16 DC 03/27/17 15:18 30 MG Piperacillin Sod/ Tazobactam Sod (Zosyn Iv) 4.5 gm NOW STAT IV 03/27/17 15:24 03/27/17 15:27 DC 03/27/17 16:56 4.5 GM Levofloxacin (Levaquin / D5W) 750 mg NOW STAT IV 03/27/17 15:24 03/27/17 15:27 DC 03/27/17 15:40 750 MG Oseltamivir Phosphate (Tamiflu Cap) 75 mg NOW STAT PO 03/27/17 15:24 03/27/17 15:27 DC 03/27/17 15:37 75 MG Acetaminophen (Tylenol Tab) 1,000 mg NOW STAT PO 03/27/17 15:24 03/27/17 15:27 DC 03/27/17 15:37 1,000 MG Ondansetron HCl (Zofran Inj) 4 mg NOW STAT IV 03/27/17 15:24 03/27/17 15:27 DC 03/27/17 15:24 4 MG Albuterol Sulfate (Ventolin 0.083% 2.5MG/3ML Neb) 2.5 mg NOW STAT INH 03/27/17 15:24 03/27/17 15:27 DC 03/27/17 15:24 2.5 MG ED Course 1408: Past medical records reviewed. The patient was evaluated in room C1B. A complete history and physical examination was performed. 1413: Ordered Toradol 30 mg IV, Sodium Chloride 500 mL @ 999 mL/hr IV. 1524: Ordered Zofran 4 mg IV, Tylenol Tab 1000 mg PO, Tamiflu 75 mg PO, Levofloxacin 750 mg IV. 1524: Ordered Zosyn 4.5 gm IV. 1615: I discussed the case with Dr. Silvia Whitney Hospitalist at this time. He will observe the patient for further treatment. Medical Decision Differential diagnosis: Etiologies such as viral syndrome, otitis, pharyngitis, pneumonia, influenza, meningitis, urinary tract infection, sepsis, bacteremia, as well as others were entertained. This is an 86-year-old female who presents emergency department complaining of influenza. The patient recently had an influenza contacts. She was discharged from the emergency department 2 days ago and has been laying in bed ever since. She last had Tylenol at 10 AM this morning. IV was established, patient given normal saline bolus. She was also given Toradol in the emergency department. Pancultured up and started on antibiotics and discussed that case with the hospitalist service who agreed to admit the patient. Patient was in agreement with the treatment plan. Medication Reconcilliation Current Medication List: was personally reviewed by me Blood Pressure Screening Patient's blood pressure: Elevated blood pressure Referred to Hospitalist Consults Time Called: 1610 Consulting Physician: Dr. Silvia South Returned Call: 1615 I discussed the case with Dr. Silvia South at this time. He will observe the patient for further treatment. Impression Primary Impression: Influenza, pneumonia Scribe Attestation The scribe's documentation has been prepared under my direction and personally reviewed by me in its entirety. I confirm that the note above accurately reflects all work, treatment, procedures, and medical decision making performed by me. Departure Information Dispostion Being Evaluated By Hospitalist Referrals Anthony Lanier PA-C (PCP) Patient Instructions My [facility]
--- NOTE | 2017-03-27 14:45 | DIAGNOSTIC IMAGING REPORT ---
CHEST ONE VIEW PORTABLE CLINICAL HISTORY: Shortness of breath. COMPARISON STUDY: Chest CT February 03, 2017 and chest radiograph January 22, 2018. FINDINGS: A left subclavian biventricular pacer is in place. Cardiomegaly is unchanged. There is no evidence for pulmonary edema. There is no pneumothorax or pleural effusion. There is mild right lower lung opacity. IMPRESSION: 1. Mild right lower lung opacity which may reflect pneumonia or atelectasis. 2. Mild cardiomegaly without evidence of pulmonary edema. Electronically signed by: Darryl Bay M.D. 03/27/2017 2:44 PM Dictated Date/Time: 03/27/2017 2:41 PM
[2017-03-27 15:21] LABS: BASO % 0.4 %; BASO ABS # 0.03 K/uL (0-0.2); EOS % 0.1 %; EOS ABS # 0.01 K/uL (0-0.5); HEMATOCRIT 36.9 % (37-47); HEMOGLOBIN 12.1 g/dL (12.0-16.0); IG# 0.02 K/uL (0.00-0.02); LYMPH % 5.1 %; LYMPH ABS # 0.39 K/uL (1.2-3.4); MEAN CORPUSCULAR HEMOGLOBIN 30.2 pg (25-34); MEAN CORPUSCULAR HGB CONC 32.8 g/dl (32-36); MEAN PLATELET VOLUME 8.3 fL (7.4-10.4); MONO % 11.4 %; MONO ABS # 0.87 K/uL (0.11-0.59); NEUT % 82.7 %; NEUT ABS # 6.28 K/uL (1.4-6.5); PLATELET COUNT 146 K/uL (130-400); RED CELL DISTRIBUTION WIDTH CV 15.1 % (11.5-14.5); RED CELL DISTRIBUTION WIDTH SD 51.3 fL (36.4-46.3)
[2017-03-27] MEDS ORDERED: OSELTAMIVIR PHOSPHATE 75 MG CAP PO STA (15:24)
[2017-03-27] MEDS ORDERED: ALBUTEROL 0.083% NEBU SOLN 3 ML VIAL INH STA (15:24)
[2017-03-27] MEDS ORDERED: PIPERACILLIN/TAZOBACTAM 4.5 GM/100ML D5W IV STA (15:24)
[2017-03-27] MEDS ORDERED: ONDANSETRON INJ 2 MG/ML 2 ML VIAL IV STA (15:24)
[2017-03-27] MEDS ORDERED: LEVAQUIN 750MG / 150ML D5W IV STA (15:24)
[2017-03-27] MEDS ORDERED: ACETAMINOPHEN 500 MG TAB PO STA (15:24)
[2017-03-27 15:43] LABS: ALBUMIN 3.2 gm/dl (3.4-5.0); ALT/SGPT 94 U/L (12-78); AST/SGOT 70 U/L (15-37); BLOOD UREA NITROGEN 10 mg/dl (7-18); CALCIUM 8.8 mg/dl (8.5-10.1); CARBON DIOXIDE 27 mmol/L (21-32); CREATININE 0.71 mg/dl (0.60-1.20); GLUCOSE 135 mg/dl (70-99); POTASSIUM 4.2 mmol/L (3.5-5.1); SODIUM 134 mmol/L (136-145)
[2017-03-27 15:49] LABS: INFLUENZA B ANTIGEN Neg for Influ B (NEG)
[2017-03-27 15:49] LABS: ALKALINE PHOSPHATASE 98 U/L (45-117); CKMB < 0.5 ng/ml (0.5-3.6)
[2017-03-27] MEDS ORDERED: CEPH500C PO (16:14)
[2017-03-27] MEDS ORDERED: PILO1SOL3 OP (16:14)
[2017-03-27] MEDS ORDERED: VNTHFA/IN INH (16:14)
[2017-03-27] MEDS ORDERED: CLOT1CRE20 TD (16:14)
[2017-03-27] MEDS ORDERED: BENZ100C18 PO (16:14)
[2017-03-27] MEDS ORDERED: DORZ1SOL6 OPB (16:14)
[2017-03-27] MEDS ORDERED: METH-1305 PO (16:14)
[2017-03-27] MEDS ORDERED: AUG0.05C12 TOP (16:14)
[2017-03-27] MEDS ORDERED: NITROGLYCERIN 0.4 MG SL PER TAB CHARGE SL PRN (16:30)
[2017-03-27] MEDS ORDERED: ALUMINUM/MAGNESIUM/SIMETH (MAALOX MAX) 30 ML UDC PO PRN (16:30)
[2017-03-27] MEDS ORDERED: MAGNESIUM HYDROXIDE SUSP 30 ML UDC PO PRN (16:30)
[2017-03-27] MEDS ORDERED: PIPERACILL/TAZOBAC CONSULT ACTIVE PRN (16:45)
[2017-03-27] MEDS ORDERED: BENZONATATE 100MG CAP PO PRN (16:45)
[2017-03-27] MEDS ORDERED: ALBUTEROL HFA 8 GM INHALER INH PRN (16:45)
[2017-03-27] MEDS ORDERED: BETAMETHASONE DIP AUG (DIPROLENE) 0.05% CR 15 GM TUBE EXT PRN (16:45)
--- NOTE | 2017-03-27 17:11 | History and Physical ---
History & Physical Date & Time of Service: Mar 27, 2017 at 16:51 Chief Complaint: Dry Heaves, Can't Hold Anything Down Primary Care Physician: Anthony Lanier PA-C History of Present Illness Source: patient, hospital records Pt is 86 y/o F with PMH paroxysmal a-fib on Coumadin, s/p pacer, GERD, HLD, spinal stenosis presented to ER with c/o malaise, weakness, cough, nausea x several days. Pt states cough productive, unsure coloration. C/P myalgias, tactile fevers and chills, SOB and anorexia. Not eating or drinking as states makes her dry heave. No vomiting or diarrhea. Pt seen in ER on 03/25/17 and dx with UTI started on Keflex. Had negative rapid influenza and CXR at that time. Urine culture: e. coli pansensitive. Pt denies any dysuria, hematuria, urinary urgency or increased frequency. Denies flank pain, abdominal pain or back pain. Reports that her daughter is ill with similar symptoms and just dx with influenza today. Denies CP, palpitations, VALERO, dizziness, syncope, orthopnea, hemoptysis, choking, rhinorrhea, paresthesias, extremity edema, rashes. Past Medical/Surgical History Medical Problems: (1) Atrial Fibrillation Status: Chronic (2) Cardiac Pacemaker In Situ Status: Chronic (3) Hyperlipidemia Nec/Nos Status: Chronic (4) Personal History, Pneumonia (Recurrent) Status: Chronic (5) Spinal Stenosis-Lumbar Status: Chronic Family History FH: CAD (coronary artery disease) FH: esophageal cancer FH: lung cancer Social History Smoking Status: Never Smoker Smokeless Tobacco Use: No Alcohol Use: none Drug Use: none Marital Status: Occupational Status: retired Immunizations History of Influenza Vaccine: Yes Influenza Vaccine Date: Nov 17, 2010 History of Tetanus Vaccine?: Unknown History of Pneumococcal: Yes History of Hepatitis B Vaccine: No Allergies Coded Allergies: Acetaminophen (Verified Allergy, Unknown, ON PHARMACY LIST, 03/27/17) Nitrofuran Derivatives (Verified Allergy, Unknown, ON PHARMACY LIST, ) Nitrofurantoin (Verified Allergy, Unknown, ON PHARMACY LIST, 03/27/17) Oxycodone (Verified Allergy, Unknown, ON PHARMACY LIST, 03/27/17) Sulfa Drugs (Verified Allergy, Unknown, SWEAT, RASH, VOMIT, 03/27/17) Tramadol (Verified Allergy, Unknown, ., 03/27/17) Morphine (Verified Adverse Reaction, Intermediate, vomiting, 03/27/17) Home Medications Scheduled Ascorbic Acid (Vitamin C), 250 MG PO DAILY Bimatoprost (Lumigan), 1 DROPS OP HS Calcium Carbonate (Calcium Carbonate), 600 MG PO DAILY Cephalexin Monohydrate (Keflex), 500 MG PO BID Clotrimazole (Topical) (Clotrimazole Af), 1 APPLN TD BID Cyanocobalamin (B-12), 100 MCG PO DAILY Docusate Sodium (Docusate Sodium), 100 MG PO DAILY Dorzolamide Hcl-Timolol Maleat (Cosopt Oph), 1 DROPS OPB BID Esomeprazole Magnesium (Nexium), 40 MG PO DAILY Ezetimibe (Zetia), 10 MG PO DAILY Furosemide (Lasix), 20 MG PO DAILY Methenamine Hippurate (Methenamine Hippurate), 1 GM PO QPM Pilocarpine Hcl (Isopto Carpine), 1 DROP OP QID Simvastatin (Zocor), 20 MG PO QPM Warfarin Sod (Jantoven), 2 MG PO QPM Scheduled PRN Albuterol Hfa (Ventolin Hfa), 2 PUFFS INH Q6H PRN for SOB/Wheezing Benzonatate (Tessalon Perles), 100 MG PO Q8 PRN for Cough Betamethasone Dipropionate Aug (Diprolene Af), 1 APPLN TOP BID PRN for AFFECTED SKIN Review of Systems Constitutional: + weakness, + fatigue (see HPI) Eyes: No worsening of vision, No eye pain, No discharge ENT: No unusual epistaxis, No trouble swallowing Respiratory: + cough (see HPI) Cardiovascular: No chest pain, No orthopnea, No PND, No edema, No palpitations Abdomen: + nausea (see HPI), No GI bleeding Musculoskeletal: + muscle pain (diffuse myalgias) Genitourinary - Female: + problem reported (see HPI) Integumentary: No rash, No itch Physical Exam Vital Signs Date Time Temp Pulse Resp B/P (MAP) Pulse Ox O2 Delivery O2 Flow Rate FiO2 03/27/17 15:24 38.5 95 24 154/67 91 Room Air 03/27/17 14:44 113 03/27/17 14:41 95 Room Air 03/27/17 14:05 37.6 99 20 158/79 91 General Appearance: WD/WN, + pertinent finding (ill appearing, non-toxic appearance) Head: normocephalic, atraumatic Eyes: normal inspection, PERRL, sclerae normal ENT: hearing grossly normal, pharynx normal, + pertinent finding (mucous membranes dry) Neck: supple, no JVD, trachea midline Respiratory/Chest: lungs clear, normal breath sounds, no respiratory distress, no accessory muscle use Cardiovascular: regular rate, rhythm, no murmur Abdomen/GI: normal bowel sounds, non tender, soft Back: no CVA tenderness Extremities/Musculoskelatal: no calf tenderness, normal capillary refill, no pedal edema, normal range of motion Neurologic/Psych: alert, normal mood/affect, oriented x 3 Skin: normal color, warm/dry Diagnostics Laboratory Results Results Past 24 Hours Test 03/27/17 14:53 03/27/17 15:00 03/27/17 16:17 Range/Units Influenza Type A Antigen POS for Influ A NEG Influenza Type B Antigen Neg for Influ B NEG White Blood Count 7.60 4.8-10.8 K/uL Red Blood Count 4.01 4.2-5.4 M/uL Hemoglobin 12.1 12.0-16.0 g/dL Hematocrit 36.9 37-47 % Mean Corpuscular Volume 92.0 80-100 fL Mean Corpuscular Hemoglobin 30.2 25-34 pg Mean Corpuscular Hemoglobin Concent 32.8 32-36 g/dl Platelet Count 146 130-400 K/uL Mean Platelet Volume 8.3 7.4-10.4 fL Neutrophils (%) (Auto) 82.7 % Lymphocytes (%) (Auto) 5.1 % Monocytes (%) (Auto) 11.4 % Eosinophils (%) (Auto) 0.1 % Basophils (%) (Auto) 0.4 % Neutrophils # (Auto) 6.28 1.4-6.5 K/uL Lymphocytes # (Auto) 0.39 1.2-3.4 K/uL Monocytes # (Auto) 0.87 0.11-0.59 K/uL Eosinophils # (Auto) 0.01 0-0.5 K/uL Basophils # (Auto) 0.03 0-0.2 K/uL RDW Standard Deviation 51.3 36.4-46.3 fL RDW Coefficient of Variation 15.1 11.5-14.5 % Immature Granulocyte % (Auto) 0.3 % Immature Granulocyte # (Auto) 0.02 0.00-0.02 K/uL Prothrombin Time 20.7 9.0-12.0 SECONDS Prothromb Time International Ratio 2.0 0.9-1.1 Sodium Level 134 136-145 mmol/L Potassium Level 4.2 3.5-5.1 mmol/L Chloride Level 101 98-107 mmol/L Carbon Dioxide Level 27 21-32 mmol/L Anion Gap 6.0 3-11 mmol/L Blood Urea Nitrogen 10 7-18 mg/dl Creatinine 0.71 0.60-1.20 mg/dl Est Creatinine Clear Calc Drug Dose 58.0 ml/min Estimated GFR () 90.0 Estimated GFR (Non- 77.7 BUN/Creatinine Ratio 14.3 10-20 Random Glucose 135 70-99 mg/dl Calcium Level 8.8 8.5-10.1 mg/dl Total Bilirubin 0.4 0.2-1 mg/dl Direct Bilirubin 0.1 0-0.2 mg/dl Aspartate Amino Transf (AST/SGOT) 70 15-37 U/L Alanine Aminotransferase (ALT/SGPT) 94 12-78 U/L Alkaline Phosphatase 98 45-117 U/L Total Creatine Kinase 85 26-192 U/L Creatine Kinase MB < 0.5 0.5-3.6 ng/ml Creatine Kinase MB Ratio 0-3.0 Troponin I < 0.015 0-0.045 ng/ml Pro-B-Type Natriuretic Peptide 326 0-1800 pg/ml Total Protein 8.0 6.4-8.2 gm/dl Albumin 3.2 3.4-5.0 gm/dl Microbiology Results 03/27/17 Blood Culture, Received Pending 03/27/17 Blood Culture, Received Pending Diagnostic Radiology CXR: IMPRESSION: 1. Mild right lower lung opacity which may reflect pneumonia or atelectasis. 2. Mild cardiomegaly without evidence of pulmonary edema. Impression Assessment and Plan FEVER/INFLUENZA/POSSIBLE CAP Pt with 3 day hx fever/chills, cough, myalgias, nausea. T: 38.5, P: 113 down to 95. 91% on RA. +influenza A. CXR: RLL opacity. Pt given Toradol, Tylenol, Zofran , DuoNeb, 500ml NSS, Tamiflu, Levaquin and Zosyn in ER -pending blood cultures -lactic acid and procalcitonin added -tamiflu -zosyn -supplemental O2 per protocol -albuterol prn -tessalon perles prn -IVF -cbc, electrolytes in am UTI Seen in ER on 03/25/17. Started on Keflex. Urine culture:e coli, pansensitive. No current symptoms -holding keflex, treating with broad spectrum antibiotics at this time PAROXYSMAL A-FIB, ON COUMADIN, S/P PACER INR: 2.0. Appears sinus rhythm on monitor, rate 95 -continue coumadin GERD -continue PPI HYPERLIPIDEMIA -holding zocor and zetia at this time DVT Prophylaxis -On coumadin Disposition admit tele Full Code as per discussion with pt Follows with Zafar Lanier PA-C for routine care Pt was seen with Dr Schroeder. See addendum ATTENDING ADDENDUM : pt seen and examined, care co ordinated with Iliana Frausto PA-C 86 yo F presents with flu like symptom -fever , chills, generalized body ache , headache Influenza Ag A + positive ordered Tamiflu , IV fluids supportive care Do Schroeder MD Level of Care Telemetry Resuscitation Status FULL RESUSCITATION VTE Prophylaxis VTE Risk Assessment Done? Y/N: Yes Risk Level: Moderate Given or contraindicated: Warfarin (Coumadin) Additional Copies To Anthony Lanier PA-C
[2017-03-27] MEDS ORDERED: SODIUM CHLORIDE 0.9% 1000ML 1,000 ML IV SCH (19:30)
[2017-03-27 19:35] VITALS: BP 129/56; PULSE 74; TEMP 37; O2SAT 94; Ht 157.5 cm; Wt 79.0 kg
[2017-03-27] MEDS ORDERED: DORZOLAMIDE/TIMOLOL 22.3/6.8MG/ML 10 ML BTL OPB SCH (21:00)
[2017-03-27] MEDS: BIMATOPROST 0.01% OP SOLN 2.5 ML BTL OP SCH (21:38)
[2017-03-27] MEDS: WARFARIN SOD 2 MG TAB PO SCH (21:40)
[2017-03-27] MEDS: PIPERACILL/TAZOBAC IV 3.375 GM in DEXTROSE 5% 100ML 100 ML IV SCH (21:40)
[2017-03-27] MEDS: METHENAMINE HIPPURATE 1 GM TAB PO SCH (21:40)
[2017-03-27] MEDS: CLOTRIMAZOLE 1% CR 15 GM TUBE EXT SCH (21:42)
[2017-03-27] MEDS: PILOCARPINE HCL 1% OP SOLN 15 ML BTL OP SCH (21:44)
[2017-03-27] MEDS: OSELTAMIVIR PHOSPHATE 75 MG CAP PO SCH (22:42)
[2017-03-27 23:14] VITALS: BP 126/61; PULSE 75; TEMP 37; O2SAT 97
[2017-03-28] VITALS (8 sets, daily range): BP systolic 102–125; BP diastolic 43–77; PULSE 70–83; TEMP 36.8–37.9; O2SAT 92–99
[2017-03-28] MEDS: PIPERACILL/TAZOBAC IV 3.375 GM in DEXTROSE 5% 100ML 100 ML IV SCH (05:43)
[2017-03-28] MEDS: ACETAMINOPHEN 325 MG TAB PO PRN (05:46)
[2017-03-28 07:41] LABS: HEMATOCRIT 33.8 % (37-47); HEMOGLOBIN 10.9 g/dL (12.0-16.0); MEAN CELL VOLUME 92.9 fL (80-100); MEAN CORPUSCULAR HEMOGLOBIN 29.9 pg (25-34); MEAN CORPUSCULAR HGB CONC 32.2 g/dl (32-36); MEAN PLATELET VOLUME 8.5 fL (7.4-10.4); PLATELET COUNT 122 K/uL (130-400); RED CELL DISTRIBUTION WIDTH CV 15.2 % (11.5-14.5); RED CELL DISTRIBUTION WIDTH SD 51.8 fL (36.4-46.3); WHITE BLOOD COUNT 4.81 K/uL (4.8-10.8)
[2017-03-28 08:09] LABS: ALBUMIN 2.8 gm/dl (3.4-5.0); ALT/SGPT 96 U/L (12-78); BLOOD UREA NITROGEN 11 mg/dl (7-18); CALCIUM 8.3 mg/dl (8.5-10.1); CARBON DIOXIDE 29 mmol/L (21-32); CREATININE 0.78 mg/dl (0.60-1.20); GLUCOSE 95 mg/dl (70-99); SODIUM 138 mmol/L (136-145)
[2017-03-28 08:12] LABS: ALKALINE PHOSPHATASE 86 U/L (45-117); AST/SGOT 78 U/L (15-37)
[2017-03-28 08:54] LABS: HEP C IGG 13 YRS+OLDER_RFLX NEG (NEG)
[2017-03-28] MEDS: CLOTRIMAZOLE 1% CR 15 GM TUBE EXT SCH ×2 (09:00→19:59)
[2017-03-28] MEDS: CYANOCOBALAMIN 100 MCG TAB (VIT B-12) PO SCH (09:00)
[2017-03-28] MEDS: PANTOprazole SOD 40 MG TAB PO SCH (09:00)
[2017-03-28] MEDS: CALCIUM CARBONATE 1250MG TAB PO SCH (09:00)
[2017-03-28] MEDS: DOCUSATE SODIUM 100 MG CAP PO SCH (09:00)
[2017-03-28] MEDS: ASCORBIC ACID 500 MG TAB PO SCH (09:00)
[2017-03-28] MEDS: PILOCARPINE HCL 1% OP SOLN 15 ML BTL OP SCH ×4 (09:01→19:59)
[2017-03-28] MEDS: OSELTAMIVIR PHOSPHATE 75 MG CAP PO SCH ×2 (09:01→20:01)
--- NOTE | 2017-03-28 09:59 | Progress Note ---
Medicine Progress Note Date & Time of Visit: Mar 28, 2017 at 09:53. Subjective seen resting in bed, comfortable, appears tired though states she feels improved compared to yesterday less dyspnea, and cough, has intermittent sputum denies chest pain no other symptoms Objective Last 8 Hrs Date Time Temp Pulse Resp B/P (MAP) Pulse Ox O2 Delivery O2 Flow Rate FiO2 03/28/17 07:50 36.9 76 16 116/58 (77) 97 03/28/17 04:00 Nasal Cannula 3.0 03/28/17 03:25 37.0 70 18 108/51 (70) 97 Nasal Cannula 3.0 Physical Exam: General- oriented x 3, not in distress, speaks in sentences with no effort Head- atraumatic Eyes- PERRL, EOMI, anicteric ENT- oropharynx clear Neck- supple, no JVD, no adenopathy, no thyromegaly; carotids +2/2 Lungs- clear to auscultation bilaterally Heart- regular rhythm; no murmur, normal rate Abdomen- normal bowel sounds, soft, nontender Extremities- no pretibial edema, no calf tenderness; peripheral pulses intact Neuro- alert, oriented x 3; no gross focal deficits Skin- warm & dry Laboratory Results: Last 24 Hours Test 03/27/17 14:53 03/27/17 15:00 03/27/17 17:17 03/27/17 19:43 Influenza Type A Antigen POS for Influ A Influenza Type B Antigen Neg for Influ B White Blood Count 7.60 K/uL Red Blood Count 4.01 M/uL Hemoglobin 12.1 g/dL Hematocrit 36.9 % Mean Corpuscular Volume 92.0 fL Mean Corpuscular Hemoglobin 30.2 pg Mean Corpuscular Hemoglobin Concent 32.8 g/dl Platelet Count 146 K/uL Mean Platelet Volume 8.3 fL Neutrophils (%) (Auto) 82.7 % Lymphocytes (%) (Auto) 5.1 % Monocytes (%) (Auto) 11.4 % Eosinophils (%) (Auto) 0.1 % Basophils (%) (Auto) 0.4 % Neutrophils # (Auto) 6.28 K/uL Lymphocytes # (Auto) 0.39 K/uL Monocytes # (Auto) 0.87 K/uL Eosinophils # (Auto) 0.01 K/uL Basophils # (Auto) 0.03 K/uL RDW Standard Deviation 51.3 fL RDW Coefficient of Variation 15.1 % Immature Granulocyte % (Auto) 0.3 % Immature Granulocyte # (Auto) 0.02 K/uL Prothrombin Time 20.7 SECONDS Prothromb Time International Ratio 2.0 Sodium Level 134 mmol/L Potassium Level 4.2 mmol/L Chloride Level 101 mmol/L Carbon Dioxide Level 27 mmol/L Anion Gap 6.0 mmol/L Blood Urea Nitrogen 10 mg/dl Creatinine 0.71 mg/dl Est Creatinine Clear Calc Drug Dose 58.0 ml/min Estimated GFR () 90.0 Estimated GFR (Non- 77.7 BUN/Creatinine Ratio 14.3 Random Glucose 135 mg/dl Calcium Level 8.8 mg/dl Total Bilirubin 0.4 mg/dl Direct Bilirubin 0.1 mg/dl Aspartate Amino Transf (AST/SGOT) 70 U/L Alanine Aminotransferase (ALT/SGPT) 94 U/L Alkaline Phosphatase 98 U/L Total Creatine Kinase 85 U/L Creatine Kinase MB < 0.5 ng/ml Creatine Kinase MB Ratio Troponin I < 0.015 ng/ml Pro-B-Type Natriuretic Peptide 326 pg/ml Total Protein 8.0 gm/dl Albumin 3.2 gm/dl Procalcitonin 0.06 ng/ml Lactic Acid Level 0.9 mmol/L Urine Color DK YELLOW Urine Appearance CLOUDY Urine pH 5.5 Urine Specific [place] 1.045 Urine Protein 1+ Urine Glucose (UA) NEG Urine Ketones TRACE Urine Occult Blood NEG Urine Nitrite NEG Urine Bilirubin NEG Urine Urobilinogen NEG Urine Leukocyte Esterase NEG Urine WBC (Auto) 1-5 /hpf Urine RBC (Auto) 0-4 /hpf Urine Hyaline Casts (Auto) 5-10 /lpf Urine Epithelial Cells (Auto) >30 /lpf Urine Bacteria (Auto) 1+ Urine Renal Epithelial Cells /lpf Urine Pathogenic Casts /lpf Urine Mucus PRESENT Test 03/28/17 06:47 White Blood Count 4.81 K/uL Red Blood Count 3.64 M/uL Hemoglobin 10.9 g/dL Hematocrit 33.8 % Mean Corpuscular Volume 92.9 fL Mean Corpuscular Hemoglobin 29.9 pg Mean Corpuscular Hemoglobin Concent 32.2 g/dl RDW Standard Deviation 51.8 fL RDW Coefficient of Variation 15.2 % Platelet Count 122 K/uL Mean Platelet Volume 8.5 fL Prothrombin Time 20.6 SECONDS Prothromb Time International Ratio 2.0 Sodium Level 138 mmol/L Potassium Level 4.0 mmol/L Chloride Level 105 mmol/L Carbon Dioxide Level 29 mmol/L Anion Gap 5.0 mmol/L Blood Urea Nitrogen 11 mg/dl Creatinine 0.78 mg/dl Est Creatinine Clear Calc Drug Dose 51.3 ml/min Estimated GFR () 80.3 Estimated GFR (Non- 69.3 BUN/Creatinine Ratio 14.5 Random Glucose 95 mg/dl Calcium Level 8.3 mg/dl Magnesium Level 2.0 mg/dl Total Bilirubin 0.2 mg/dl Direct Bilirubin < 0.1 mg/dl Aspartate Amino Transf (AST/SGOT) 78 U/L Alanine Aminotransferase (ALT/SGPT) 96 U/L Alkaline Phosphatase 86 U/L Total Protein 7.0 gm/dl Albumin 2.8 gm/dl Hepatitis B Surface Antigen NEG Hepatitis C Antibody NEG Date/Time Source Procedure Growth Status 03/27/17 15:17 Blood Blood Culture Pending Received 03/27/17 15:00 Blood Blood Culture Pending Received 03/27/17 19:43 Urine , Clean Catch Urine Culture Pending Received Assessment & Plan 86 year old female with history of Atrial Fibrillation, on coumadin, s/p PM, presenting with fever, cough. INFLUENZA A INFECTION R/O COMMUNITY ACQUIRED PNEUMONIA - blood cultures: pending sputum culture: pending - Portable CXR: possible right lower lobe infiltrate 2view CXR ordered today Procalcitonin <0.1 - on Tamiflu Day 2 change Zosyn to Ceftri IV - wean off Oxygen via NC UTI Seen in ER on 03/25/17. Started on Keflex. Urine culture:e coli, pansensitive. No current symptoms - change Zosyn to Ceftri (less [place]) PAROXYSMAL A-FIB, ON COUMADIN, S/P PACER INR: 2.0. Appears sinus rhythm on monitor, rate 95 -continue coumadin GERD -continue PPI HYPERLIPIDEMIA -holding zocor and zetia at this time DVT Prophylaxis -On coumadin Disposition PT/OT consulted anticipate d/c home when medically stable Follows with Zafar Lanier PA-C for routine care Current Inpatient Medications: Current Inpatient Medications Medications (Trade) Dose Ordered Sig/Zoran Route Start Time Stop Time Status Last Admin Dose Admin Al Hydrox/Mg Hydrox/Simethicone (Maalox Max Susp) 15 ml Q4H PRN PO 03/27/17 16:30 04/26/17 16:29 Magnesium Hydroxide (Milk Of Magnesia Susp) 30 ml Q12H PRN PO 03/27/17 16:30 04/26/17 16:29 Nitroglycerin (Nitrostat Tab) 0.4 mg UD PRN SL 03/27/17 16:30 04/26/17 16:29 Acetaminophen (Tylenol Tab) 650 mg Q4H PRN PO 03/27/17 16:30 04/26/17 16:29 03/28/17 05:46 650 MG Oseltamivir Phosphate (Tamiflu Cap) 75 mg BID PO 03/27/17 23:00 04/01/17 22:59 03/28/17 09:01 75 MG Albuterol (Ventolin Hfa Inhaler) 2 puffs Q6H PRN INH 03/27/17 16:45 04/26/17 16:44 Benzonatate (Tessalon Perles Cap) 100 mg Q8 PRN PO 03/27/17 16:45 04/26/17 16:44 Betamethasone Dipropion Augmented (Diprolene 0.05% Cr) 1 appln BID PRN EXT 03/27/17 16:45 04/26/17 16:44 Clotrimazole (Lotrimin 1% Crm) 1 appln BID EXT 03/27/17 21:00 04/26/17 20:59 03/27/17 21:42 1 APPLN Cyanocobalamin (Vitamin B-12 Tab) 100 mcg DAILY PO 03/28/17 09:00 04/27/17 08:59 03/28/17 09:00 100 MCG Docusate Sodium (coLACE CAP) 100 mg DAILY PO 03/28/17 09:00 04/27/17 08:59 03/28/17 09:00 100 MG Methenamine Hippurate (Urex Tab) 1 gm QPM PO 03/27/17 21:00 04/01/17 20:59 03/27/17 21:40 1 GM Pilocarpine HCl (Isopto Carpine 1% Oph Soln) 1 drops QID OP 03/27/17 17:00 04/26/17 16:59 03/28/17 09:01 1 DROPS Warfarin Sodium (Coumadin Tab) 2 mg QPM PO 03/27/17 21:00 04/26/17 20:59 03/27/17 21:40 2 MG Ascorbic Acid (Vitamin C Tab) 250 mg DAILY PO 03/28/17 09:00 04/27/17 08:59 03/28/17 09:00 250 MG Bimatoprost (Lumigan 0.01%) 1 drops HS OP 03/27/17 21:00 04/26/17 20:59 03/27/17 21:38 1 DROPS Calcium Carbonate (oS-Dale 500 TAB) 1,250 mg DAILY PO 03/28/17 09:00 04/27/17 08:59 03/28/17 09:00 1,250 MG Pantoprazole Sodium (Protonix Tab) 40 mg QAM PO 03/28/17 09:00 04/27/17 08:59 03/28/17 09:00 40 MG Miscellaneous Information (Order Awaiting Action) 1 ea QS N/A 03/28/17 00:00 04/27/17 00:00 Ceftriaxone Sodium 1 gm/ Dextrose 50 ml @ 100 mls/hr Q24H IV 03/28/17 10:00 04/04/17 09:59
--- NOTE | 2017-03-28 11:29 | DIAGNOSTIC IMAGING REPORT ---
CHEST 2 VIEWS ROUTINE CLINICAL HISTORY: Shortness of breath. COMPARISON STUDY: Chest CT February 03, 2017 and chest radiograph March 27, 2017. FINDINGS: A left biventricular pacer/ICD is in place. Cardiac mediastinal silhouette is stable. There is no evidence for pulmonary edema. No pneumothorax or pleural effusion is present. There is mild bilateral lower lung reticulonodular interstitial thickening. IMPRESSION: 1. Mild bilateral lower lung reticulonodular interstitial thickening which may reflect a mild infectious process. 2. Mild cardiomegaly without evidence of pulmonary edema. Electronically signed by: Darryl Bay M.D. 03/28/2017 11:27 AM Dictated Date/Time: 03/28/2017 11:26 AM
[2017-03-28] MEDS: CEFTRIAXONE SOD INJ 1 GM in DEXTROSE 5% ADD-VANTAGE 50ML 50 ML IV SCH (12:07)
[2017-03-28] MEDS: BIMATOPROST 0.01% OP SOLN 2.5 ML BTL OP SCH (20:00)
[2017-03-28] MEDS: WARFARIN SOD 2 MG TAB PO SCH (20:01)
[2017-03-28] MEDS: METHENAMINE HIPPURATE 1 GM TAB PO SCH (20:01)
[2017-03-28] MEDS ORDERED: DOXYCYCLINE HYCLATE 100 MG CAP PO ONE (22:00)
[2017-03-29] VITALS (9 sets, daily range): BP systolic 110–124; BP diastolic 48–63; PULSE 70–91; TEMP 36.9–37.3; O2SAT 90–96
[2017-03-29 05:48] LABS: HEMATOCRIT 34.1 % (37-47); MEAN CELL VOLUME 91.9 fL (80-100); MEAN CORPUSCULAR HEMOGLOBIN 29.6 pg (25-34); MEAN CORPUSCULAR HGB CONC 32.3 g/dl (32-36); MEAN PLATELET VOLUME 8.3 fL (7.4-10.4); PLATELET COUNT 120 K/uL (130-400); RED CELL DISTRIBUTION WIDTH CV 15.2 % (11.5-14.5); RED CELL DISTRIBUTION WIDTH SD 52.1 fL (36.4-46.3); WHITE BLOOD COUNT 3.94 K/uL (4.8-10.8)
[2017-03-29 05:56] LABS: INR 1.9 (0.9-1.1)
[2017-03-29 06:02] LABS: HEPATITIS A IGM TC 51813E NON-REACTIVE (NON-REACTIVE); HEPATITIS B CORE IGM TC51854R NON-REACTIVE (NON-REACTIVE)
[2017-03-29 06:27] LABS: ALBUMIN 2.5 gm/dl (3.4-5.0); ALT/SGPT 99 U/L (12-78); AST/SGOT 67 U/L (15-37); BLOOD UREA NITROGEN 15 mg/dl (7-18); CALCIUM 8.4 mg/dl (8.5-10.1); CARBON DIOXIDE 26 mmol/L (21-32); CREATININE 0.74 mg/dl (0.60-1.20); GLUCOSE 92 mg/dl (70-99); POTASSIUM 4.2 mmol/L (3.5-5.1); SODIUM 134 mmol/L (136-145)
[2017-03-29 06:30] LABS: ALKALINE PHOSPHATASE 106 U/L (45-117); TOTAL PROTEIN 6.4 gm/dl (6.4-8.2)
[2017-03-29] MEDS: PILOCARPINE HCL 1% OP SOLN 15 ML BTL OP SCH ×4 (09:27→21:02)
[2017-03-29] MEDS: CLOTRIMAZOLE 1% CR 15 GM TUBE EXT SCH ×2 (09:27→21:02)
[2017-03-29] MEDS: DOCUSATE SODIUM 100 MG CAP PO SCH (09:28)
[2017-03-29] MEDS: CALCIUM CARBONATE 1250MG TAB PO SCH (09:28)
[2017-03-29] MEDS: PANTOprazole SOD 40 MG TAB PO SCH (09:29)
[2017-03-29] MEDS: OSELTAMIVIR PHOSPHATE 75 MG CAP PO SCH ×2 (09:30→21:03)
[2017-03-29] MEDS: DOXYCYCLINE HYCLATE 100 MG CAP PO SCH ×2 (09:31→21:04)
[2017-03-29] MEDS: CYANOCOBALAMIN 100 MCG TAB (VIT B-12) PO SCH (09:31)
[2017-03-29] MEDS: ASCORBIC ACID 500 MG TAB PO SCH (09:32)
[2017-03-29] MEDS: CEFTRIAXONE SOD INJ 1 GM in DEXTROSE 5% ADD-VANTAGE 50ML 50 ML IV SCH (09:33)
--- NOTE | 2017-03-29 15:18 | Progress Note ---
Medicine Progress Note Date & Time of Visit: Mar 29, 2017 at 15:18. Subjective seen resting in bed, comfortable states she feels tired today breathing and cough improving no other symptoms patient tearful that she cannot visit her daughter who is also admitted patient reassured Objective Last 8 Hrs Date Time Temp Pulse Resp B/P (MAP) Pulse Ox O2 Delivery O2 Flow Rate FiO2 03/29/17 12:00 Nasal Cannula 1.0 03/29/17 12:00 Nasal Cannula 1.0 03/29/17 11:25 37.3 70 18 123/50 (74) 95 Nasal Cannula 1.0 03/29/17 11:00 37.2 78 18 120/60 (80) 90 Nasal Cannula 1.0 03/29/17 08:00 37.3 78 18 110/48 (68) 91 Nasal Cannula 1.0 03/29/17 08:00 Nasal Cannula 1.0 03/29/17 08:00 Nasal Cannula 1.0 03/29/17 08:00 37.3 78 18 110/48 (68) 91 Nasal Cannula 1.0 Physical Exam: General- oriented x 3, not in distress, speaks in sentences with no effort Eyes- anicteric Neck- supple, no JVD Lungs- mild rhonchi at the bases Heart- regular rhythm; no murmur, normal rate Abdomen- normal bowel sounds, soft, nontender Extremities- no pretibial edema, no calf tenderness; peripheral pulses intact Neuro- alert, oriented x 3; no gross focal deficits Skin- warm & dry Laboratory Results: Last 24 Hours Test 03/29/17 05:23 White Blood Count 3.94 K/uL Red Blood Count 3.71 M/uL Hemoglobin 11.0 g/dL Hematocrit 34.1 % Mean Corpuscular Volume 91.9 fL Mean Corpuscular Hemoglobin 29.6 pg Mean Corpuscular Hemoglobin Concent 32.3 g/dl RDW Standard Deviation 52.1 fL RDW Coefficient of Variation 15.2 % Platelet Count 120 K/uL Mean Platelet Volume 8.3 fL Prothrombin Time 19.4 SECONDS Prothromb Time International Ratio 1.9 Sodium Level 134 mmol/L Potassium Level 4.2 mmol/L Chloride Level 104 mmol/L Carbon Dioxide Level 26 mmol/L Anion Gap 4.0 mmol/L Blood Urea Nitrogen 15 mg/dl Creatinine 0.74 mg/dl Est Creatinine Clear Calc Drug Dose 54.1 ml/min Estimated GFR () 85.6 Estimated GFR (Non- 73.9 BUN/Creatinine Ratio 20.4 Random Glucose 92 mg/dl Calcium Level 8.4 mg/dl Magnesium Level 2.0 mg/dl Total Bilirubin 0.2 mg/dl Direct Bilirubin < 0.1 mg/dl Aspartate Amino Transf (AST/SGOT) 67 U/L Alanine Aminotransferase (ALT/SGPT) 99 U/L Alkaline Phosphatase 106 U/L Total Protein 6.4 gm/dl Albumin 2.5 gm/dl Date/Time Source Procedure Growth Status 03/29/17 03:45 Sputum Expectorated Sputum Gram Stain - Final Resulted 03/29/17 03:45 Sputum Expectorated Sputum Sputum Culture Pending Resulted Assessment & Plan 86 year old female with history of Atrial Fibrillation, on coumadin, s/p PM, presenting with fever, cough. INFLUENZA A INFECTION with COMMUNITY ACQUIRED PNEUMONIA - blood cultures: negative so far sputum culture: negative so far - Portable CXR: possible right lower lobe infiltrate 2view CXR : bilateral lower lobe infiltrates Procalcitonin <0.1 - on Tamiflu Day 3 changed Zosyn to Ceftri IV Doxycycline added - will add Nebs gradually improving - wean off Oxygen via NC UTI Seen in ER on 03/25/17. Started on Keflex. Urine culture:e coli, pansensitive. No current symptoms - changes Zosyn to Ceftri (less [place]) PAROXYSMAL A-FIB, ON COUMADIN, S/P PACER INR .19 -continue coumadin GERD -continue PPI HYPERLIPIDEMIA -holding zocor and zetia at this time DVT Prophylaxis -On coumadin Disposition PT/OT consulted anticipate d/c home when medically stable Follows with Zafar Lanier PA-C for routine care Current Inpatient Medications: Current Inpatient Medications Medications (Trade) Dose Ordered Sig/Zoran Route Start Time Stop Time Status Last Admin Dose Admin Al Hydrox/Mg Hydrox/Simethicone (Maalox Max Susp) 15 ml Q4H PRN PO 03/27/17 16:30 04/26/17 16:29 Magnesium Hydroxide (Milk Of Magnesia Susp) 30 ml Q12H PRN PO 03/27/17 16:30 04/26/17 16:29 Nitroglycerin (Nitrostat Tab) 0.4 mg UD PRN SL 03/27/17 16:30 04/26/17 16:29 Acetaminophen (Tylenol Tab) 650 mg Q4H PRN PO 03/27/17 16:30 04/26/17 16:29 03/28/17 05:46 650 MG Oseltamivir Phosphate (Tamiflu Cap) 75 mg BID PO 03/27/17 23:00 04/01/17 22:59 03/29/17 09:30 75 MG Albuterol (Ventolin Hfa Inhaler) 2 puffs Q6H PRN INH 03/27/17 16:45 04/26/17 16:44 Benzonatate (Tessalon Perles Cap) 100 mg Q8 PRN PO 03/27/17 16:45 04/26/17 16:44 Betamethasone Dipropion Augmented (Diprolene 0.05% Cr) 1 appln BID PRN EXT 03/27/17 16:45 04/26/17 16:44 Clotrimazole (Lotrimin 1% Crm) 1 appln BID EXT 03/27/17 21:00 04/26/17 20:59 03/29/17 09:27 1 APPLN Cyanocobalamin (Vitamin B-12 Tab) 100 mcg DAILY PO 03/28/17 09:00 04/27/17 08:59 03/29/17 09:31 100 MCG Docusate Sodium (coLACE CAP) 100 mg DAILY PO 03/28/17 09:00 04/27/17 08:59 03/29/17 09:28 100 MG Methenamine Hippurate (Urex Tab) 1 gm QPM PO 03/27/17 21:00 04/01/17 20:59 03/28/17 20:01 1 GM Pilocarpine HCl (Isopto Carpine 1% Oph Soln) 1 drops QID OP 03/27/17 17:00 04/26/17 16:59 03/29/17 14:09 1 DROPS Warfarin Sodium (Coumadin Tab) 2 mg QPM PO 03/27/17 21:00 04/26/17 20:59 03/28/17 20:01 2 MG Ascorbic Acid (Vitamin C Tab) 250 mg DAILY PO 03/28/17 09:00 04/27/17 08:59 03/29/17 09:32 250 MG Bimatoprost (Lumigan 0.01%) 1 drops HS OP 03/27/17 21:00 04/26/17 20:59 03/28/17 20:00 1 DROPS Calcium Carbonate (oS-Dale 500 TAB) 1,250 mg DAILY PO 03/28/17 09:00 04/27/17 08:59 03/29/17 09:28 1,250 MG Pantoprazole Sodium (Protonix Tab) 40 mg QAM PO 03/28/17 09:00 04/27/17 08:59 03/29/17 09:29 40 MG Miscellaneous Information (Order Awaiting Action) 1 ea QS N/A 03/28/17 00:00 04/27/17 00:00 Ceftriaxone Sodium 1 gm/ Dextrose 50 ml @ 100 mls/hr Q24H IV 03/28/17 10:00 04/04/17 09:59 03/29/17 09:33 100 MLS/HR Doxycycline Hyclate (Vibramycin Cap) 100 mg BID PO 03/29/17 09:00 04/05/17 08:59 03/29/17 09:31 100 MG
[2017-03-29] MEDS ORDERED: LEVALBUTEROL/IPRATROPIUM NEB INH SCH (15:30)
[2017-03-29] MEDS: IPRATROPIUM BROMIDE NEB SOLN 0.02% 2.5 ML VIAL INH SCH (19:16)
[2017-03-29] MEDS: LEVALBUTEROL 0.63MG/3 ML NEB INH SCH (19:16)
[2017-03-29] MEDS ORDERED: WARFARIN SOD 3 MG TAB PO SCH (21:00)
[2017-03-29] MEDS: BIMATOPROST 0.01% OP SOLN 2.5 ML BTL OP SCH (21:02)
[2017-03-29] MEDS: METHENAMINE HIPPURATE 1 GM TAB PO SCH (21:03)
[2017-03-30] VITALS (10 sets, daily range): BP systolic 128–174; BP diastolic 64–89; PULSE 70–75; TEMP 36.6–37.1; O2SAT 91–93
[2017-03-30] MEDS: IPRATROPIUM BROMIDE NEB SOLN 0.02% 2.5 ML VIAL INH SCH ×4 (01:32→19:20)
[2017-03-30] MEDS: LEVALBUTEROL 0.63MG/3 ML NEB INH SCH ×4 (01:33→19:20)
[2017-03-30 06:01] LABS: HEMATOCRIT 36.8 % (37-47); HEMOGLOBIN 11.8 g/dL (12.0-16.0); MEAN CELL VOLUME 92.7 fL (80-100); MEAN CORPUSCULAR HEMOGLOBIN 29.7 pg (25-34); MEAN CORPUSCULAR HGB CONC 32.1 g/dl (32-36); MEAN PLATELET VOLUME 8.2 fL (7.4-10.4); PLATELET COUNT 114 K/uL (130-400); RED CELL DISTRIBUTION WIDTH CV 15.3 % (11.5-14.5); WHITE BLOOD COUNT 3.52 K/uL (4.8-10.8)
[2017-03-30 06:07] LABS: INR 1.9 (0.9-1.1)
[2017-03-30 06:22] LABS: ALBUMIN 2.8 gm/dl (3.4-5.0); ALT/SGPT 85 U/L (12-78); BLOOD UREA NITROGEN 13 mg/dl (7-18); CARBON DIOXIDE 28 mmol/L (21-32); GLUCOSE 93 mg/dl (70-99); SODIUM 138 mmol/L (136-145)
[2017-03-30 06:25] LABS: ALKALINE PHOSPHATASE 100 U/L (45-117); AST/SGOT 47 U/L (15-37); TOTAL PROTEIN 7.3 gm/dl (6.4-8.2)
[2017-03-30] MEDS: CEFTRIAXONE SOD INJ 1 GM in DEXTROSE 5% ADD-VANTAGE 50ML 50 ML IV SCH (08:10)
[2017-03-30] MEDS: DOXYCYCLINE HYCLATE 100 MG CAP PO SCH ×2 (08:10→22:14)
[2017-03-30] MEDS: CALCIUM CARBONATE 1250MG TAB PO SCH (08:10)
[2017-03-30] MEDS: PANTOprazole SOD 40 MG TAB PO SCH (08:10)
[2017-03-30] MEDS: DOCUSATE SODIUM 100 MG CAP PO SCH (08:10)
[2017-03-30] MEDS: CYANOCOBALAMIN 100 MCG TAB (VIT B-12) PO SCH (08:11)
[2017-03-30] MEDS: OSELTAMIVIR PHOSPHATE 75 MG CAP PO SCH ×2 (08:11→22:14)
[2017-03-30] MEDS: CLOTRIMAZOLE 1% CR 15 GM TUBE EXT SCH ×2 (08:12→20:00)
[2017-03-30] MEDS: ASCORBIC ACID 500 MG TAB PO SCH (08:12)
[2017-03-30] MEDS: PILOCARPINE HCL 1% OP SOLN 15 ML BTL OP SCH ×4 (08:13→21:39)
--- NOTE | 2017-03-30 13:17 | Consultant Recommendations ---
[employer] Recommendations Date of Service Mar 30, 2017.
--- NOTE | 2017-03-30 19:02 | Progress Note ---
Medicine Progress Note Date & Time of Visit: Mar 30, 2017 at 19:01. Subjective seen resting in bed, comfortable family visiting states she feels improved today no dyspnea, off NC, less cough denies other symptoms Objective Last 8 Hrs Date Time Temp Pulse Resp B/P (MAP) Pulse Ox O2 Delivery O2 Flow Rate FiO2 03/30/17 17:34 139/77 (97) 03/30/17 16:00 Room Air 03/30/17 15:30 36.6 75 18 174/89 (117) 93 Room Air 03/30/17 14:26 37.0 75 16 92 1.0 03/30/17 14:20 75 16 92 Room Air 03/30/17 12:00 Room Air 03/30/17 11:49 37.0 73 18 128/72 (90) 92 Room Air Physical Exam: General- oriented x 3, not in distress, speaks in sentences with no effort Neck- no JVD Lungs- decreased rhonchi at the bases Heart- regular rhythm; no murmur, normal rate Abdomen- normal bowel sounds, soft, nontender Extremities- no pretibial edema, no calf tenderness; peripheral pulses intact Neuro- alert, oriented x 3; no gross focal deficits Skin- warm & dry Laboratory Results: Last 24 Hours Test 03/30/17 05:25 White Blood Count 3.52 K/uL Red Blood Count 3.97 M/uL Hemoglobin 11.8 g/dL Hematocrit 36.8 % Mean Corpuscular Volume 92.7 fL Mean Corpuscular Hemoglobin 29.7 pg Mean Corpuscular Hemoglobin Concent 32.1 g/dl RDW Standard Deviation 52.0 fL RDW Coefficient of Variation 15.3 % Platelet Count 114 K/uL Mean Platelet Volume 8.2 fL Prothrombin Time 20.1 SECONDS Prothromb Time International Ratio 1.9 Sodium Level 138 mmol/L Potassium Level 4.0 mmol/L Chloride Level 102 mmol/L Carbon Dioxide Level 28 mmol/L Anion Gap 8.0 mmol/L Blood Urea Nitrogen 13 mg/dl Creatinine 0.70 mg/dl Est Creatinine Clear Calc Drug Dose 57.2 ml/min Estimated GFR () 91.6 Estimated GFR (Non- 79.0 BUN/Creatinine Ratio 18.9 Random Glucose 93 mg/dl Calcium Level 9.0 mg/dl Magnesium Level 2.0 mg/dl Total Bilirubin 0.3 mg/dl Direct Bilirubin < 0.1 mg/dl Aspartate Amino Transf (AST/SGOT) 47 U/L Alanine Aminotransferase (ALT/SGPT) 85 U/L Alkaline Phosphatase 100 U/L Total Protein 7.3 gm/dl Albumin 2.8 gm/dl Assessment & Plan 86 year old female with history of Atrial Fibrillation, on coumadin, s/p PM, presenting with fever, cough. INFLUENZA A INFECTION with COMMUNITY ACQUIRED PNEUMONIA - blood cultures: negative so far sputum culture: negative so far - Portable CXR: possible right lower lobe infiltrate 2view CXR : bilateral lower lobe infiltrates Procalcitonin <0.1 - on Tamiflu Day 4/ changed Zosyn to Ceftri IV Doxycycline Nebs -- improving overall off NC UTI Seen in ER on 03/25/17. Started on Keflex. Urine culture:e coli, pansensitive. No current symptoms - changed Zosyn to Ceftri (less [place]) PAROXYSMAL A-FIB, ON COUMADIN, S/P PACER INR 1.9 -continue coumadin GERD -continue PPI HYPERLIPIDEMIA -holding zocor and zetia at this time DVT Prophylaxis -On coumadin Disposition PT/OT consulted anticipate d/c home when medically stable Follows with Zafar Lanier PA-C for routine care Current Inpatient Medications: Current Inpatient Medications Medications (Trade) Dose Ordered Sig/Zoran Route Start Time Stop Time Status Last Admin Dose Admin Al Hydrox/Mg Hydrox/Simethicone (Maalox Max Susp) 15 ml Q4H PRN PO 03/27/17 16:30 04/26/17 16:29 Magnesium Hydroxide (Milk Of Magnesia Susp) 30 ml Q12H PRN PO 03/27/17 16:30 04/26/17 16:29 Nitroglycerin (Nitrostat Tab) 0.4 mg UD PRN SL 03/27/17 16:30 04/26/17 16:29 Acetaminophen (Tylenol Tab) 650 mg Q4H PRN PO 03/27/17 16:30 04/26/17 16:29 03/28/17 05:46 650 MG Oseltamivir Phosphate (Tamiflu Cap) 75 mg BID PO 03/27/17 23:00 04/01/17 22:59 03/30/17 08:11 75 MG Albuterol (Ventolin Hfa Inhaler) 2 puffs Q6H PRN INH 03/27/17 16:45 04/26/17 16:44 Benzonatate (Tessalon Perles Cap) 100 mg Q8 PRN PO 03/27/17 16:45 04/26/17 16:44 03/29/17 21:01 100 MG Betamethasone Dipropion Augmented (Diprolene 0.05% Cr) 1 appln BID PRN EXT 03/27/17 16:45 04/26/17 16:44 03/29/17 21:01 1 APPLN Clotrimazole (Lotrimin 1% Crm) 1 appln BID EXT 03/27/17 21:00 04/26/17 20:59 03/29/17 21:02 1 APPLN Cyanocobalamin (Vitamin B-12 Tab) 100 mcg DAILY PO 03/28/17 09:00 04/27/17 08:59 03/30/17 08:11 100 MCG Docusate Sodium (coLACE CAP) 100 mg DAILY PO 03/28/17 09:00 04/27/17 08:59 03/30/17 08:10 100 MG Methenamine Hippurate (Urex Tab) 1 gm QPM PO 03/27/17 21:00 04/01/17 20:59 03/29/17 21:03 1 GM Pilocarpine HCl (Isopto Carpine 1% Oph Soln) 1 drops QID OP 03/27/17 17:00 04/26/17 16:59 03/30/17 16:01 1 DROPS Ascorbic Acid (Vitamin C Tab) 250 mg DAILY PO 03/28/17 09:00 04/27/17 08:59 03/30/17 08:12 250 MG Bimatoprost (Lumigan 0.01%) 1 drops HS OP 03/27/17 21:00 04/26/17 20:59 03/29/17 21:02 1 DROPS Calcium Carbonate (oS-Dale 500 TAB) 1,250 mg DAILY PO 03/28/17 09:00 04/27/17 08:59 03/30/17 08:10 1,250 MG Pantoprazole Sodium (Protonix Tab) 40 mg QAM PO 03/28/17 09:00 04/27/17 08:59 03/30/17 08:10 40 MG Miscellaneous Information (Order Awaiting Action) 1 ea QS N/A 03/28/17 00:00 04/27/17 00:00 Ceftriaxone Sodium 1 gm/ Dextrose 50 ml @ 100 mls/hr Q24H IV 03/28/17 10:00 04/04/17 09:59 03/30/17 08:10 100 MLS/HR Doxycycline Hyclate (Vibramycin Cap) 100 mg BID PO 03/29/17 09:00 04/05/17 08:59 03/30/17 08:10 100 MG Warfarin Sodium (Coumadin Tab) 3 mg QPM PO 03/29/17 21:00 04/26/17 20:59 03/29/17 21:01 3 MG Ipratropium [place] (Atrovent 0.02% 0.5MG/2.5ML Neb) 0.5 mg Q6R INH 03/29/17 21:00 04/28/17 20:59 03/30/17 14:19 0.5 MG Levalbuterol (Xopenex 0.63 Mg/ 3 Ml Neb) 0.63 mg Q6R INH 03/29/17 21:00 04/28/17 20:59 03/30/17 14:19 0.63 MG
[2017-03-30] MEDS: WARFARIN SOD 4 MG TAB PO SCH (21:41)
[2017-03-30] MEDS: BIMATOPROST 0.01% OP SOLN 2.5 ML BTL OP SCH (21:42)
[2017-03-30] MEDS: ACETAMINOPHEN 325 MG TAB PO PRN (22:13)
[2017-03-30] MEDS: METHENAMINE HIPPURATE 1 GM TAB PO SCH (22:14)
[2017-03-31] VITALS (9 sets, daily range): BP systolic 120–135; BP diastolic 68–76; PULSE 71–87; TEMP 36.4–36.7; O2SAT 90–94
[2017-03-31] MEDS: LEVALBUTEROL 0.63MG/3 ML NEB INH SCH ×4 (01:45→19:45)
[2017-03-31] MEDS: IPRATROPIUM BROMIDE NEB SOLN 0.02% 2.5 ML VIAL INH SCH ×4 (01:45→19:45)
[2017-03-31] MEDS: DOXYCYCLINE HYCLATE 100 MG CAP PO SCH ×2 (07:40→21:21)
[2017-03-31] MEDS: OSELTAMIVIR PHOSPHATE 75 MG CAP PO SCH ×2 (07:40→21:19)
[2017-03-31] MEDS: CLOTRIMAZOLE 1% CR 15 GM TUBE EXT SCH ×2 (07:44→20:00)
[2017-03-31 07:45] LABS: HEMATOCRIT 38.6 % (37-47); HEMOGLOBIN 12.8 g/dL (12.0-16.0); MEAN CELL VOLUME 90.6 fL (80-100); MEAN CORPUSCULAR HGB CONC 33.2 g/dl (32-36); MEAN PLATELET VOLUME 8.2 fL (7.4-10.4); PLATELET COUNT 130 K/uL (130-400); RED CELL DISTRIBUTION WIDTH CV 14.9 % (11.5-14.5); RED CELL DISTRIBUTION WIDTH SD 49.7 fL (36.4-46.3); WHITE BLOOD COUNT 4.28 K/uL (4.8-10.8)
[2017-03-31] MEDS: PILOCARPINE HCL 1% OP SOLN 15 ML BTL OP SCH ×4 (07:45→21:17)
[2017-03-31 07:54] LABS: INR 2.3 (0.9-1.1)
[2017-03-31] MEDS: CALCIUM CARBONATE 1250MG TAB PO SCH (08:06)
[2017-03-31] MEDS: CYANOCOBALAMIN 100 MCG TAB (VIT B-12) PO SCH (08:06)
[2017-03-31] MEDS: DOCUSATE SODIUM 100 MG CAP PO SCH (08:06)
[2017-03-31 08:08] LABS: ALBUMIN 3.1 gm/dl (3.4-5.0); CALCIUM 9.2 mg/dl (8.5-10.1); CREATININE 0.77 mg/dl (0.60-1.20); POTASSIUM 3.9 mmol/L (3.5-5.1)
[2017-03-31] MEDS: ASCORBIC ACID 500 MG TAB PO SCH (08:08)
[2017-03-31] MEDS: PANTOprazole SOD 40 MG TAB PO SCH (08:08)
[2017-03-31 08:12] LABS: TOTAL PROTEIN 7.8 gm/dl (6.4-8.2)
[2017-03-31] MEDS: CEFTRIAXONE SOD INJ 1 GM in DEXTROSE 5% ADD-VANTAGE 50ML 50 ML IV SCH (10:00)
[2017-03-31] MEDS: WARFARIN SOD 4 MG TAB PO SCH (21:20)
[2017-03-31] MEDS: METHENAMINE HIPPURATE 1 GM TAB PO SCH (21:21)
[2017-03-31] MEDS: BIMATOPROST 0.01% OP SOLN 2.5 ML BTL OP SCH (21:21)
[2017-04-01 01:30] VITALS: PULSE 72; O2SAT 93
[2017-04-01] MEDS: LEVALBUTEROL 0.63MG/3 ML NEB INH SCH ×2 (01:30→07:04)
[2017-04-01] MEDS: IPRATROPIUM BROMIDE NEB SOLN 0.02% 2.5 ML VIAL INH SCH ×2 (01:30→07:03)
--- NOTE | 2017-04-01 05:25 | Progress Note ---
Medicine Progress Note Date & Time of Visit: Apr 01, 2017 at 05:15. Subjective resting in chair states she continues to feel improved no dyspnea, no chest congestion less cough ambulates with no problem Objective Last 8 Hrs Date Time Temp Pulse Resp B/P (MAP) Pulse Ox O2 Delivery O2 Flow Rate FiO2 04/01/17 01:30 72 20 93 Room Air 03/31/17 23:46 36.7 72 17 135/69 (91) 92 Room Air Physical Exam: General- oriented x 3, not in distress, speaks in sentences with no effort Neck- no JVD Lungs-clear breath sounds bilaterally Heart- regular rhythm; no murmur, normal rate Abdomen- normal bowel sounds, soft, nontender Extremities- no pretibial edema, no calf tenderness Neuro- alert, oriented x 3; no gross focal deficits Skin- warm & dry Laboratory Results: Last 24 Hours Test 03/31/17 07:34 White Blood Count 4.28 K/uL Red Blood Count 4.26 M/uL Hemoglobin 12.8 g/dL Hematocrit 38.6 % Mean Corpuscular Volume 90.6 fL Mean Corpuscular Hemoglobin 30.0 pg Mean Corpuscular Hemoglobin Concent 33.2 g/dl RDW Standard Deviation 49.7 fL RDW Coefficient of Variation 14.9 % Platelet Count 130 K/uL Mean Platelet Volume 8.2 fL Prothrombin Time 24.0 SECONDS Prothromb Time International Ratio 2.3 Sodium Level 136 mmol/L Potassium Level 3.9 mmol/L Chloride Level 99 mmol/L Carbon Dioxide Level 31 mmol/L Anion Gap 6.0 mmol/L Blood Urea Nitrogen 17 mg/dl Creatinine 0.77 mg/dl Est Creatinine Clear Calc Drug Dose 52.0 ml/min Estimated GFR () 81.6 Estimated GFR (Non- 70.4 BUN/Creatinine Ratio 21.8 Random Glucose 103 mg/dl Calcium Level 9.2 mg/dl Magnesium Level 1.9 mg/dl Total Bilirubin 0.4 mg/dl Direct Bilirubin 0.1 mg/dl Aspartate Amino Transf (AST/SGOT) 45 U/L Alanine Aminotransferase (ALT/SGPT) 90 U/L Alkaline Phosphatase 111 U/L Total Protein 7.8 gm/dl Albumin 3.1 gm/dl Assessment & Plan 86 year old female with history of Atrial Fibrillation, on coumadin, s/p PM, presenting with fever, cough. INFLUENZA A INFECTION with COMMUNITY ACQUIRED PNEUMONIA - blood cultures: negative so far sputum culture: negative so far - Portable CXR: possible right lower lobe infiltrate 2view CXR : bilateral lower lobe infiltrates Procalcitonin <0.1 - on Tamiflu Day 06/09 changed Zosyn to Ceftri IV Doxycycline Nebs -- continues to improve off NC UTI Seen in ER on 03/25/17. Started on Keflex. Urine culture:e coli, pansensitive. No current symptoms - changed Zosyn to Ceftri (less [place]) PAROXYSMAL A-FIB, ON COUMADIN, S/P PACER INR 2.4 -continue coumadin GERD -continue PPI HYPERLIPIDEMIA -holding zocor and zetia at this time DVT Prophylaxis -On coumadin Disposition PT/OT consulted anticipate d/c home when medically stable Follows with Zafar Lanier PA-C for routine care Current Inpatient Medications: Current Inpatient Medications Medications (Trade) Dose Ordered Sig/Zoran Route Start Time Stop Time Status Last Admin Dose Admin Al Hydrox/Mg Hydrox/Simethicone (Maalox Max Susp) 15 ml Q4H PRN PO 03/27/17 16:30 04/26/17 16:29 Magnesium Hydroxide (Milk Of Magnesia Susp) 30 ml Q12H PRN PO 03/27/17 16:30 04/26/17 16:29 Nitroglycerin (Nitrostat Tab) 0.4 mg UD PRN SL 03/27/17 16:30 04/26/17 16:29 Acetaminophen (Tylenol Tab) 650 mg Q4H PRN PO 03/27/17 16:30 04/26/17 16:29 03/30/17 22:13 650 MG Oseltamivir Phosphate (Tamiflu Cap) 75 mg BID PO 03/27/17 23:00 04/01/17 22:59 03/31/17 21:19 75 MG Albuterol (Ventolin Hfa Inhaler) 2 puffs Q6H PRN INH 03/27/17 16:45 04/26/17 16:44 Benzonatate (Tessalon Perles Cap) 100 mg Q8 PRN PO 03/27/17 16:45 04/26/17 16:44 03/29/17 21:01 100 MG Betamethasone Dipropion Augmented (Diprolene 0.05% Cr) 1 appln BID PRN EXT 03/27/17 16:45 04/26/17 16:44 03/29/17 21:01 1 APPLN Clotrimazole (Lotrimin 1% Crm) 1 appln BID EXT 03/27/17 21:00 04/26/17 20:59 03/29/17 21:02 1 APPLN Cyanocobalamin (Vitamin B-12 Tab) 100 mcg DAILY PO 03/28/17 09:00 04/27/17 08:59 03/31/17 08:06 100 MCG Docusate Sodium (coLACE CAP) 100 mg DAILY PO 03/28/17 09:00 04/27/17 08:59 03/31/17 08:06 100 MG Methenamine Hippurate (Urex Tab) 1 gm QPM PO 03/27/17 21:00 04/01/17 20:59 03/31/17 21:21 1 GM Pilocarpine HCl (Isopto Carpine 1% Oph Soln) 1 drops QID OP 03/27/17 17:00 04/26/17 16:59 03/31/17 21:17 1 DROPS Ascorbic Acid (Vitamin C Tab) 250 mg DAILY PO 03/28/17 09:00 04/27/17 08:59 03/31/17 08:08 250 MG Bimatoprost (Lumigan 0.01%) 1 drops HS OP 03/27/17 21:00 04/26/17 20:59 03/31/17 21:21 1 DROPS Calcium Carbonate (oS-Dale 500 TAB) 1,250 mg DAILY PO 03/28/17 09:00 04/27/17 08:59 03/31/17 08:06 1,250 MG Pantoprazole Sodium (Protonix Tab) 40 mg QAM PO 03/28/17 09:00 04/27/17 08:59 03/31/17 08:08 40 MG Miscellaneous Information (Order Awaiting Action) 1 ea QS N/A 03/28/17 00:00 04/27/17 00:00 Ceftriaxone Sodium 1 gm/ Dextrose 50 ml @ 100 mls/hr Q24H IV 03/28/17 10:00 04/04/17 09:59 03/31/17 10:00 100 MLS/HR Doxycycline Hyclate (Vibramycin Cap) 100 mg BID PO 03/29/17 09:00 04/05/17 08:59 03/31/17 21:21 100 MG Ipratropium [place] (Atrovent 0.02% 0.5MG/2.5ML Neb) 0.5 mg Q6R INH 03/29/17 21:00 04/28/17 20:59 04/01/17 01:30 0.5 MG Levalbuterol (Xopenex 0.63 Mg/ 3 Ml Neb) 0.63 mg Q6R INH 03/29/17 21:00 04/28/17 20:59 04/01/17 01:30 0.63 MG Warfarin Sodium (Coumadin Tab) 4 mg QPM PO 03/30/17 21:00 04/26/17 20:59 03/31/17 21:20 4 MG
[2017-04-01 07:06] VITALS: PULSE 70; O2SAT 92
[2017-04-01 07:53] VITALS: BP 130/72; PULSE 70; TEMP 36.5; O2SAT 91
[2017-04-01] MEDS: CLOTRIMAZOLE 1% CR 15 GM TUBE EXT SCH (08:00)
[2017-04-01 08:12] LABS: INR 3.3 (0.9-1.1)
[2017-04-01] MEDS: PILOCARPINE HCL 1% OP SOLN 15 ML BTL OP SCH (08:20)
[2017-04-01] MEDS: OSELTAMIVIR PHOSPHATE 75 MG CAP PO SCH (08:20)
[2017-04-01] MEDS: DOXYCYCLINE HYCLATE 100 MG CAP PO SCH (08:20)
[2017-04-01] MEDS: PANTOprazole SOD 40 MG TAB PO SCH (08:20)
[2017-04-01] MEDS: CALCIUM CARBONATE 1250MG TAB PO SCH (08:20)
[2017-04-01] MEDS: DOCUSATE SODIUM 100 MG CAP PO SCH (08:20)
[2017-04-01] MEDS: CYANOCOBALAMIN 100 MCG TAB (VIT B-12) PO SCH (08:21)
[2017-04-01] MEDS: ASCORBIC ACID 500 MG TAB PO SCH (08:21)
[2017-04-01] MEDS: CEFTRIAXONE SOD INJ 1 GM in DEXTROSE 5% ADD-VANTAGE 50ML 50 ML IV SCH (08:23)
--- NOTE | 2017-04-01 10:52 | Progress Note ---
Medicine Progress Note Date & Time of Visit: Apr 01, 2017 at 10:47. Subjective seen resting in bedside chair, relaxing with her daughter states she feels much better overall no cough, dyspnea ambulates with no problems denies any other symptoms states she is ready and would like to be discharged today Objective Last 8 Hrs Date Time Temp Pulse Resp B/P (MAP) Pulse Ox O2 Delivery O2 Flow Rate FiO2 04/01/17 08:00 Room Air 04/01/17 07:53 36.5 70 18 130/72 (91) 91 Room Air 04/01/17 07:06 70 18 92 Room Air Physical Exam: General- oriented x 3, not in distress, speaks in sentences with no effort Neck- no JVD Lungs-clear breath sounds bilaterally, no wheezing, no rales Heart- regular rhythm; no murmur, normal rate Abdomen- normal bowel sounds, soft, nontender Extremities- no pretibial edema, no calf tenderness Neuro- alert, oriented x 3; no gross focal deficits Skin- warm & dry Laboratory Results: Last 24 Hours Test 04/01/17 07:40 Prothrombin Time 33.6 SECONDS Prothromb Time International Ratio 3.3 Assessment & Plan 86 year old female with history of Atrial Fibrillation, on coumadin, s/p PM, presenting with fever, cough. INFLUENZA A INFECTION with COMMUNITY ACQUIRED PNEUMONIA - blood cultures: negative so far sputum culture: negative so far - Portable CXR: possible right lower lobe infiltrate 2 view CXR : bilateral lower lobe infiltrates Procalcitonin <0.1 - given Tamiflu Day 06/09 changed Zosyn to Ceftri IV Doxycycline Nebs -- significantly improved weaned off oxygen -- ff up with PCP in 3-5 days UTI Seen in ER on 03/25/17. Started on Keflex. Urine culture:e coli, pansensitive. No current symptoms - changed Zosyn to Ceftri (less [place]) - finished 5 day course of Ceftri monitor as outpatient PAROXYSMAL A-FIB, ON COUMADIN, S/P PACER INR 3.3 -advised to hold coumadin - patient advised to have INR check with her PCP on Sunday and follow further advice per PCP GERD -continue PPI HYPERLIPIDEMIA - continue meds DVT Prophylaxis -On coumadin Disposition d/c home ff up with PCP in 3-5 days Current Inpatient Medications: Current Inpatient Medications Medications (Trade) Dose Ordered Sig/Zoran Route Start Time Stop Time Status Last Admin Dose Admin Al Hydrox/Mg Hydrox/Simethicone (Maalox Max Susp) 15 ml Q4H PRN PO 03/27/17 16:30 04/26/17 16:29 Magnesium Hydroxide (Milk Of Magnesia Susp) 30 ml Q12H PRN PO 03/27/17 16:30 04/26/17 16:29 Nitroglycerin (Nitrostat Tab) 0.4 mg UD PRN SL 03/27/17 16:30 04/26/17 16:29 Acetaminophen (Tylenol Tab) 650 mg Q4H PRN PO 03/27/17 16:30 04/26/17 16:29 03/30/17 22:13 650 MG Oseltamivir Phosphate (Tamiflu Cap) 75 mg BID PO 03/27/17 23:00 04/01/17 22:59 04/01/17 08:20 75 MG Albuterol (Ventolin Hfa Inhaler) 2 puffs Q6H PRN INH 03/27/17 16:45 04/26/17 16:44 Benzonatate (Tessalon Perles Cap) 100 mg Q8 PRN PO 03/27/17 16:45 04/26/17 16:44 03/29/17 21:01 100 MG Betamethasone Dipropion Augmented (Diprolene 0.05% Cr) 1 appln BID PRN EXT 03/27/17 16:45 04/26/17 16:44 03/29/17 21:01 1 APPLN Clotrimazole (Lotrimin 1% Crm) 1 appln BID EXT 03/27/17 21:00 04/26/17 20:59 03/29/17 21:02 1 APPLN Cyanocobalamin (Vitamin B-12 Tab) 100 mcg DAILY PO 03/28/17 09:00 04/27/17 08:59 04/01/17 08:21 100 MCG Docusate Sodium (coLACE CAP) 100 mg DAILY PO 03/28/17 09:00 04/27/17 08:59 04/01/17 08:20 100 MG Methenamine Hippurate (Urex Tab) 1 gm QPM PO 03/27/17 21:00 04/01/17 20:59 03/31/17 21:21 1 GM Pilocarp[place] HCl (Isopto Carpine 1% Oph Soln) 1 drops QID OP 03/27/17 17:00 04/26/17 16:59 04/01/17 08:20 1 DROPS Ascorbic Acid (Vitamin C Tab) 250 mg DAILY PO 03/28/17 09:00 04/27/17 08:59 04/01/17 08:21 250 MG Bimatoprost (Lumigan 0.01%) 1 drops HS OP 03/27/17 21:00 04/26/17 20:59 03/31/17 21:21 1 DROPS Calcium Carbonate (oS-Dale 500 TAB) 1,250 mg DAILY PO 03/28/17 09:00 04/27/17 08:59 04/01/17 08:20 1,250 MG Pantoprazole Sodium (Protonix Tab) 40 mg QAM PO 03/28/17 09:00 04/27/17 08:59 04/01/17 08:20 40 MG Miscellaneous Information (Order Awaiting Action) 1 ea QS N/A 03/28/17 00:00 04/27/17 00:00 Ceftriaxone Sodium 1 gm/ Dextrose 50 ml @ 100 mls/hr Q24H IV 03/28/17 10:00 04/04/17 09:59 03/31/17 10:00 100 MLS/HR Doxycycline Hyclate (Vibramycin Cap) 100 mg BID PO 03/29/17 09:00 04/05/17 08:59 04/01/17 08:20 100 MG Ipratropium [place] (Atrovent 0.02% 0.5MG/2.5ML Neb) 0.5 mg Q6R INH 03/29/17 21:00 04/28/17 20:59 04/01/17 07:03 0.5 MG Levalbuterol (Xopenex 0.63 Mg/ 3 Ml Neb) 0.63 mg Q6R INH 03/29/17 21:00 04/28/17 20:59 04/01/17 07:04 0.63 MG Warfarin Sodium (Coumadin Tab) 4 mg QPM PO 03/30/17 21:00 04/26/17 20:59 03/31/17 21:20 4 MG
[2017-04-01] MEDS ORDERED: DXY100 PO (10:59)
--- NOTE | 2017-04-01 11:02 | Discharge Instructions ---
Discharge Instructions Date of Service Apr 01, 2017. Admission Reason for Admission: FLU Discharge Discharge Diagnosis / Problem: INFLUENZA, PNEUMONIA Discharge Goals Goal(s): Diagnostic testing, Therapeutic intervention Activity Recommendations Activity Limitations: as noted below (INCREASE ACTIVITY GRADUALLY TOLERATED , NO HEAVY EXERTION UNTIL RE-EVALUATED BY PRIMARY CARE PHYSICIAN) Lifting Limitations: until after follow-up appointment Exercise/Sports Limitations: until after follow-up appointment . Instructions / Follow-Up Instructions / Follow-Up PLEASE REFER TO YOUR NEW MEDICATION LIST AND FOLLOW INSTRUCTIONS CAREFULLY. DO NOT TAKE COUMADIN TODAY AND TOMORROW. CALL YOUR PRIMARY CARE PHYSICIAN FOR BLOODWORK (INR) ON SUNDAY, AND FOLLOW THEIR ADVICE REGARDING YOUR COUMADIN DOSE. CALL PRIMARY CARE PHYSICIAN OR RETURN TO ER IMMEDIATELY IF WITH WORSENING OF SYMPTOMS, FEVER, COUGH, SHORTNESS OF BREATH, CHANGES WITH URINATION. FOLLOW UP WITH PRIMARY CARE PHYSICIAN IN 3-5 DAYS. Current Hospital Diet Patient's current hospital diet: AHA Diet (Heart Healthy) Discharge Diet Recommended Diet: AHA Diet (Heart Healthy) Procedures Procedures Performed: CHEST XRAY Pending Studies Studies pending at discharge: yes List of pending studies: REPEAT BLOODWORK (INR) ON Sunday04/03/17 C/O PRIMARY CARE PHYSICIAN. Medical Emergencies . Who to Call and When: Medical Emergencies: If at any time you feel your situation is an emergency, please call 911 immediately. . Non-Emergent Contact Non-Emergency issues call your: Primary Care Provider Call Non-Emergent contact if: you have a fever, you have any medication questions . . "Provider Documentation" section prepared by Bennett Lao. . VTE Core Measure Inpt VTE Proph given/why not?: Warfarin (Coumadin)
--- NOTE | 2017-04-01 11:06 | Discharge Summary ---
Discharge Summary Date of Service Apr 01, 2017. Discharge Summary Admission Date: Mar 27, 2017 at 16:19 Discharge Date: Apr 01, 2017 Discharge Disposition: Home Principal Diagnosis: INFLUENZA A INFECTION with COMMUNITY ACQUIRED PNEUMONIA Secondary Diagnoses/Problems: PLEASE REFER TO HOSPITAL COURSE BELOW. Procedures: CHEST ONE VIEW PORTABLE CLINICAL HISTORY: Shortness of breath. COMPARISON STUDY: Chest CT February 03, 2017 and chest radiograph January 22, 2018. FINDINGS: A left subclavian biventricular pacer is in place. Cardiomegaly is unchanged. There is no evidence for pulmonary edema. There is no pneumothorax or pleural effusion. There is mild right lower lung opacity. IMPRESSION: 1. Mild right lower lung opacity which may reflect pneumonia or atelectasis. 2. Mild cardiomegaly without evidence of pulmonary edema. Electronically signed by: Darryl Bay M.D. 03/27/2017 2:44 PM CHEST 2 VIEWS ROUTINE CLINICAL HISTORY: Shortness of breath. COMPARISON STUDY: Chest CT February 03, 2017 and chest radiograph March 27, 2017. FINDINGS: A left biventricular pacer/ICD is in place. Cardiac mediastinal silhouette is stable. There is no evidence for pulmonary edema. No pneumothorax or pleural effusion is present. There is mild bilateral lower lung reticulonodular interstitial thickening. IMPRESSION: 1. Mild bilateral lower lung reticulonodular interstitial thickening which may reflect a mild infectious process. 2. Mild cardiomegaly without evidence of pulmonary edema. Electronically signed by: Darryl Bay M.D. 03/28/2017 11:27 AM Pending Studies/Follow-Up: PLEASE REFER TO HOSPITAL COURSE BELOW. Medication Reconciliation New Medications: Doxycycline Hyclate (Doxycycline Hyclate) 100 Mg Cap 100 MG PO BID for 2 Days, #4 CAP 0 Refills Continued Medications: Albuterol Hfa (Ventolin Hfa) 200 Puffs/02075 Mcg Aers 2 PUFFS INH Q6H PRN for SOB/Wheezing, #1 INHALER Ascorbic Acid (Vitamin C) 250 Mg Chw 250 MG PO DAILY Benzonatate (Tessalon Perles) 100 Mg Cap 100 MG PO Q8 PRN for Cough, CAP Betamethasone Dipropionate Aug (Diprolene Af) 0.05 % Cre 1 APPLN TOP BID PRN for AFFECTED SKIN, #50 GM Bimatoprost (Lumigan) 0.01 % Renay 1 DROPS OP HS Calcium Carbonate (Calcium Carbonate) 600 Mg Tab 600 MG PO DAILY Clotrimazole (Topical) (Clotrimazole Af) 1 % Cre 1 APPLN TD BID Cyanocobalamin (B-12) 100 Mcg Tab 100 MCG PO DAILY Docusate Sodium (Docusate Sodium) 100 Mg Cap 100 MG PO DAILY Dorzolamide Hcl-Timolol Maleat (Cosopt Oph) 1 Renay Renay 1 DROPS OPB BID, #10 ML 3 Refills Esomeprazole Magnesium (Nexium) 40 Mg Capcr 40 MG PO DAILY, 0 Refills Ezetimibe (Zetia) 10 Mg Tab 10 MG PO DAILY Furosemide (Lasix) 20 Mg Tab 20 MG PO DAILY Methenamine Hippurate (Methenamine Hippurate) 1 Gm Tab 1 GM PO QPM Pilocarpine Hcl (Isopto Carpine) 1 % Renay 1 DROP OP QID Simvastatin (Zocor) 20 Mg Tab 20 MG PO QPM Discontinued Medications: Cephalexin Monohydrate (Keflex) 500 Mg Cap 500 MG PO BID, CAP STARTED 03/25/17 FOR 7 DAYS. Warfarin Sod (Jantoven) 2 Mg Tab 2 MG PO QPM Admission Information HPI (per Admitting provider): Pt is 86 y/o F with PMH paroxysmal a-fib on Coumadin, s/p pacer, GERD, HLD, spinal stenosis presented to ER with c/o malaise, weakness, cough, nausea x several days. Pt states cough productive, unsure coloration. C/P myalgias, tactile fevers and chills, SOB and anorexia. Not eating or drinking as states makes her dry heave. No vomiting or diarrhea. Pt seen in ER on 03/25/17 and dx with UTI started on Keflex. Had negative rapid influenza and CXR at that time. Urine culture: e. coli pansensitive. Pt denies any dysuria, hematuria, urinary urgency or increased frequency. Denies flank pain, abdominal pain or back pain. Reports that her daughter is ill with similar symptoms and just dx with influenza today. Denies CP, palpitations, VALERO, dizziness, syncope, orthopnea, hemoptysis, choking, rhinorrhea, paresthesias, extremity edema, rashes. Physical Exam (per Admitting): General Appearance: WD/WN, + pertinent finding (ill appearing, non-toxic appearance) Head: normocephalic, atraumatic Eyes: normal inspection, PERRL, sclerae normal ENT: hearing grossly normal, pharynx normal, + pertinent finding (mucous membranes dry) Neck: supple, no JVD, trachea midline Respiratory/Chest: lungs clear, normal breath sounds, no respiratory distress, no accessory muscle use Cardiovascular: regular rate, rhythm, no murmur Abdomen/GI: normal bowel sounds, non tender, soft Back: no CVA tenderness Extremities/Musculoskelatal: no calf tenderness, normal capillary refill, no pedal edema, normal range of motion Neurologic/Psych: alert, normal mood/affect, oriented x 3 Skin: normal color, warm/dry Hospital Course 86 year old female with history of Atrial Fibrillation, on coumadin, s/p PM, presenting with fever, cough. INFLUENZA A INFECTION with COMMUNITY ACQUIRED PNEUMONIA - blood cultures: negative sputum culture: negative - Portable CXR: possible right lower lobe infiltrate 2 view CXR : bilateral lower lobe infiltrates Procalcitonin <0.1 - complete 5 days of Tamiflu, Doxycycline, and Cetriaxone IV given nebulizer treatments -- significantly improved weaned off oxygen -- finish 2 more days of Doxycycline to complete 7 days -- ff up with PCP in 3-5 days UTI Seen in ER on 03/25/17. Started on Keflex. Urine culture:e coli, pansensitive. - finished 5 day course of Ceftriaxone monitor as outpatient PAROXYSMAL A-FIB, ON COUMADIN, S/P PACER INR 3.3 -advised to hold coumadin - patient advised to have INR check with her PCP on Sunday04/03/17 and follow further advice per PCP GERD -continue PPI HYPERLIPIDEMIA - continue meds Disposition d/c home ff up with PCP in 3-5 days Total time spent on discharge = 25 minutes This includes examination of the patient, discharge planning, medication reconciliation, and communication with other providers. Discharge Instructions Discharge Instructions Date of Service Apr 01, 2017. Admission Reason for Admission: FLU Discharge Discharge Diagnosis / Problem: INFLUENZA, PNEUMONIA Discharge Goals Goal(s): Diagnostic testing, Therapeutic intervention Activity Recommendations Activity Limitations: as noted below (INCREASE ACTIVITY GRADUALLY TOLERATED , NO HEAVY EXERTION UNTIL RE-EVALUATED BY PRIMARY CARE PHYSICIAN) Lifting Limitations: until after follow-up appointment Exercise/Sports Limitations: until after follow-up appointment . Instructions / Follow-Up Instructions / Follow-Up PLEASE REFER TO YOUR NEW MEDICATION LIST AND FOLLOW INSTRUCTIONS CAREFULLY. DO NOT TAKE COUMADIN TODAY AND TOMORROW. CALL YOUR PRIMARY CARE PHYSICIAN FOR BLOODWORK (INR) ON SUNDAY, AND FOLLOW THEIR ADVICE REGARDING YOUR COUMADIN DOSE. CALL PRIMARY CARE PHYSICIAN OR RETURN TO ER IMMEDIATELY IF WITH WORSENING OF SYMPTOMS, FEVER, COUGH, SHORTNESS OF BREATH, CHANGES WITH URINATION. FOLLOW UP WITH PRIMARY CARE PHYSICIAN IN 3-5 DAYS. Current Hospital Diet Patient's current hospital diet: AHA Diet (Heart Healthy) Discharge Diet Recommended Diet: AHA Diet (Heart Healthy) Procedures Procedures Performed: CHEST XRAY Pending Studies Studies pending at discharge: yes List of pending studies: REPEAT BLOODWORK (INR) ON Sunday04/03/17 C/O PRIMARY CARE PHYSICIAN. Medical Emergencies . Who to Call and When: Medical Emergencies: If at any time you feel your situation is an emergency, please call 911 immediately. . Non-Emergent Contact Non-Emergency issues call your: Primary Care Provider Call Non-Emergent contact if: you have a fever, you have any medication questions . . "Provider Documentation" section prepared by Bennett Lao. . VTE Core Measure Inpt VTE Proph given/why not?: Warfarin (Coumadin)
[2017-04-01 11:09] VITALS: BP 130/72; PULSE 70; TEMP 36.5; O2SAT 91
--- NOTE | 2017-04-04 12:26 | EDITING REQUIRED CODING QUERY ---
CODING QUERY To promote full compliance with coding requirements relating to patient care, provider participation is requested in all cases of information coder uncertainty. Please assist us with the question(s) below: Coding Question(s): Please clarify below, in your clinical opinion, regarding the UTI. ( X ) current UTI was treated during this admission ( ) no current UTI - History of UTI only Physician's Response(s): Thank you Olga Wilder Principal Diagnosis: "_that condition established after study, to be chiefly responsible for occasioning the admission of the patient to the hospital for care." Co-Existing Principal Diagnosis: "_when two or more diagnoses equally meet the criteria for principal diagnosis as determined by the circumstances of admission, diagnostic work up, and/or therapy provided, and the Alphabetic Index, Tabular List, or another coding guideline does not provide sequencing direction, any one of the diagnoses may be sequenced first." "When the physician has documented what appears to be a current diagnosis in the body of the record, but has not included the diagnosis in the final diagnostic statement, the physician should be asked whether the diagnosis should be added." (Source Coding [facility] 2 QTR90. p3-4)
== END 2017-04-01 11:59 | disposition home or self-care (01) | DRG 194 ==
LOC: C.EDB 14:04 → C.2E 16:19 → ENRESERV 18:11 → C.4E 03-30 15:24
PROVIDERS: ADMIT Hospitalist; ATTEND Internal Medicine
DX: J10.00 Influenza due to other identified influenza virus with unspecified type of pneumonia (principal); N39.0 Urinary tract infection, site not specified; B96.20 Unspecified Escherichia coli [E. coli] as the cause of diseases classified elsewhere; I48.0 Paroxysmal atrial fibrillation; K21.9 Gastro-esophageal reflux disease without esophagitis; E78.5 Hyperlipidemia, unspecified; Z79.899 Other long term (current) drug therapy; Z79.01 Long term (current) use of anticoagulants; Z95.0 Presence of cardiac pacemaker; Z87.01 Personal history of pneumonia (recurrent); Z88.6 Allergy status to analgesic agent; Z88.1 Allergy status to other antibiotic agents; Z88.2 Allergy status to sulfonamides; Z88.5 Allergy status to narcotic agent; Z82.49 Family history of ischemic heart disease and other diseases of the circulatory system; Z80.1 Family history of malignant neoplasm of trachea, bronchus and lung; Z80.0 Family history of malignant neoplasm of digestive organs

== ENCOUNTER → 2017-05-04 | Outpatient (CLI) | payer OTHER, MEDICARE ==
[~2017-05-04] MED LIST changes: +AUG0.05C12 TOP; +BENZ100C18 PO; -BENZ100C84 PO; -CEPH-571 PO; +CLOT1CRE20 TD; +DORZ1SOL6 OPB; +DXY100 PO; +METH-1305 PO; +PILO1SOL3 OP; -WARF2TAB8 PO; -[UNRECOGNIZED DRUG - CODE] OPB
[2017-05-04 14:36] LABS: INR 1.8 (0.9-1.1)
== END | disposition home or self-care (01) ==
LOC: C.LABPBG 09:27
PROVIDERS: ATTEND Family Medicine
DX: I48.91 Unspecified atrial fibrillation (principal)

== ENCOUNTER → 2017-05-10 | Outpatient (CLI) | payer OTHER, MEDICARE ==
[2017-05-10 12:42] LABS: HEMATOCRIT 38.1 % (37-47); HEMOGLOBIN 12.3 g/dL (12.0-16.0); MEAN CELL VOLUME 91.6 fL (80-100); MEAN CORPUSCULAR HEMOGLOBIN 29.6 pg (25-34); MEAN CORPUSCULAR HGB CONC 32.3 g/dl (32-36); MEAN PLATELET VOLUME 8.7 fL (7.4-10.4); PLATELET COUNT 230 K/uL (130-400); RED CELL DISTRIBUTION WIDTH CV 15.1 % (11.5-14.5); RED CELL DISTRIBUTION WIDTH SD 51.5 fL (36.4-46.3); WHITE BLOOD COUNT 7.77 K/uL (4.8-10.8)
[2017-05-10 12:54] LABS: BLOOD UREA NITROGEN 15 mg/dl (7-18); CALCIUM 8.9 mg/dl (8.5-10.1); CARBON DIOXIDE 28 mmol/L (21-32); CREATININE 0.74 mg/dl (0.60-1.20); GLUCOSE 97 mg/dl (70-99); POTASSIUM 4.1 mmol/L (3.5-5.1); SODIUM 136 mmol/L (136-145)
== END | disposition home or self-care (01) ==
LOC: C.LABPBG 10:53
PROVIDERS: ATTEND Family Medicine
DX: Z01.810 Encounter for preprocedural cardiovascular examination (principal)

== ENCOUNTER → 2017-05-17 | Outpatient (CLI) | payer OTHER, MEDICARE ==
[2017-05-17 17:01] LABS: INR 2.6 (0.9-1.1)
== END | disposition home or self-care (01) ==
LOC: C.LABPBG 12:39
PROVIDERS: ATTEND Family Medicine
DX: I48.91 Unspecified atrial fibrillation (principal)

== ENCOUNTER → 2017-05-22 | Outpatient (CLI) | payer OTHER, MEDICARE ==
--- NOTE | 2017-05-23 07:51 | MAMMOGRAPHY REPORT ---
BILATERAL DIGITAL SCREENING MAMMOGRAM TOMOSYNTHESIS WITH CAD: 05/22/2017 CLINICAL HISTORY: Routine screening. Patient has no complaints. TECHNIQUE: Breast tomosynthesis in addition to standard 2D mammography was performed. Current study was also evaluated with a Computer Aided Detection (CAD) system. COMPARISON: Comparison is made to exams dated: 08/22/2016 mammogram and 08/17/2015 mammogram - [facility]. BREAST COMPOSITION: There are scattered areas of fibroglandular density in both breasts. FINDINGS: The left MLO view is suboptimal due to inability of the patient to adequately position for the exam with concerns over her pacemaker. Within this limitation, there are moderate vascular calc ifications bilaterally. Stable nodularity and asymmetries in the right breast. No obvious new ras s, calcifications, areas of architectural distortion or asymmetries identified bilaterally. IMPRESSION: ACR BI-RADS CATEGORY 1: NEGATIVE There is no mammographic evidence of malignancy. A 1 year screening mammogram is recommended. The pa tient will receive written notification of the results. Approximately 10% of breast cancers are not detected with mammography. A negative mammographic report should not delay biopsy if a clinically suggestive mass is present. Armida Vázquez M.D. ay/:05/22/2017 15:46:52 Tool Design Checker: Anna MICHEL(Carolyne)(Tay), [facility] letter sent: Normal 1/2 BI-RADS Code: ACR BI-RADS Category 1: Negative
== END | disposition home or self-care (01) ==
LOC: C.MAMM 13:15
PROVIDERS: ATTEND Physician Assistant
DX: Z12.31 Encounter for screening mammogram for malignant neoplasm of breast (principal); Z78.0 Asymptomatic menopausal state; M85.80 Other specified disorders of bone density and structure, unspecified site

== ENCOUNTER → 2017-06-01 | Outpatient (CLI) | payer OTHER, MEDICARE ==
[~2017-06-01] MED LIST changes: +CEPH500C2 PO
[2017-06-01 17:26] LABS: INR 2.1 (0.9-1.1)
== END | disposition home or self-care (01) ==
LOC: C.LABPBG 11:21
PROVIDERS: ATTEND Family Medicine
DX: I48.91 Unspecified atrial fibrillation (principal)

== ENCOUNTER 2017-06-03 14:27 | Emergency (ER) | payer OTHER, MEDICARE ==
[~2017-06-03] VITALS: Ht 157.5 cm; Wt 80.5 kg
[~2017-06-03 14:27] MED LIST changes: -CEPH500C2 PO
[2017-06-03 14:31] VITALS: TEMP 36.7; Ht 157.5 cm; Wt 80.5 kg
[2017-06-03 15:13] VITALS: O2SAT 93
[2017-06-03 15:22] LABS: BASO % 0.4 %; BASO ABS # 0.05 K/uL (0-0.2); EOS % 6.8 %; EOS ABS # 0.87 K/uL (0-0.5); HEMATOCRIT 38.8 % (37-47); HEMOGLOBIN 12.7 g/dL (12.0-16.0); IG# 0.04 K/uL (0.00-0.02); LYMPH % 11.8 %; MEAN CELL VOLUME 91.5 fL (80-100); MEAN CORPUSCULAR HGB CONC 32.7 g/dl (32-36); MEAN PLATELET VOLUME 8.5 fL (7.4-10.4); MONO % 9.9 %; MONO ABS # 1.26 K/uL (0.11-0.59); NEUT % 70.8 %; NEUT ABS # 9.03 K/uL (1.4-6.5); PLATELET COUNT 202 K/uL (130-400); RED CELL DISTRIBUTION WIDTH CV 14.7 % (11.5-14.5); RED CELL DISTRIBUTION WIDTH SD 49.6 fL (36.4-46.3); WHITE BLOOD COUNT 12.75 K/uL (4.8-10.8)
[2017-06-03 15:38] LABS: ALBUMIN 3.2 gm/dl (3.4-5.0); CALCIUM 8.9 mg/dl (8.5-10.1); CREATININE 0.7 mg/dl (0.60-1.20); POTASSIUM 4.1 mmol/L (3.5-5.1)
[2017-06-03 15:41] LABS: TOTAL PROTEIN 7.9 gm/dl (6.4-8.2)
--- NOTE | 2017-06-03 16:28 | DIAGNOSTIC IMAGING REPORT ---
ULTRASOUND OF THE PELVIS CLINICAL HISTORY: Vaginal bleeding. COMPARISON STUDY: Pelvic CT dated 02/03/2011. TECHNIQUE: Real-time, grayscale, and color flow sonography of the pelvis is performed transabdominally. Images are reviewed in the transverse and longitudinal planes. The patient declined the endovaginal examination. FINDINGS: Uterus: The uterus is normal in size and heterogeneous in echotexture, measuring 8.0 x 2.3 x 4.1 cm. Endometrium: The endometrium is thickened for age, and the endometrial stripe measures up to 1.0 cm. There is trace fluid in the endometrial canal. A 1.1 cm hyperechoic structure suggested in the fundal region. Ovaries: The ovaries were not visualized transabdominally examination. Pelvis: There is no free fluid in the cul-de-sac. No concerning adnexal lesion is seen. IMPRESSION: 1. The patient declined the endovaginal examination. 2. The endometrium is thickened for age measuring up to 10 mm in thickness. Follow-up with gynecology is recommended with consideration to endometrial biopsy. 3. Fluid within the endometrial cavity is nonspecific and may related to endometrial atrophy. 4. A more focal 1.1 cm hyperechoic structure Isthmus seen within the endometrial canal in the fundal region. A small polyp is not excluded. 5. The ovaries were not visualized. No concerning adnexal lesion is identified. Electronically signed by: Shaun Eduardo M.D. 06/03/2017 4:26 PM Dictated Date/Time: 06/03/2017 4:22 PM
[2017-06-03 16:52] LABS: INR 2.5 (0.9-1.1)
[2017-06-03] MEDS ORDERED: CEPH500C2 PO (16:56)
[2017-06-03] MEDS ORDERED: CEPHALEXIN MONOHYDRATE 250 MG CAP PO ONE (17:00)
[2017-06-03] MEDS ORDERED: CEPHALEXIN 500MG HOME PACK 1 EA BTL PO ONE (17:00)
[2017-06-03 17:13] LABS: PTT PATIENT 48.8 SECONDS (21.0-31.0)
[2017-06-03 17:39] VITALS: BP 144/80; PULSE 80; O2SAT 92
--- NOTE | 2017-06-03 17:50 | EMERGENCY ROOM VISIT NOTE ---
History Report prepared by Josiah: Vera Greene Under the Supervision of: Dr. Paul Parsons D.O. First contact with patient: 14:36 Chief Complaint: ED VAG BLEEDING Stated Complaint: BLEEDING FROM VAGINA AND PAIN History of Present Illness The patient is an 86 year old female who presents to the Emergency Room with complaints of persistent vaginal bleeding starting last night. The patient started having intermittent lower abdominal pain yesterday. In the middle of the night, she started having vaginal bleeding which she describes as being similar to a period. She has been wearing a pad. She denies any hematuria or rectal bleeding. She has never had this kind of vaginal bleeding before. She denies any dizziness or nausea. She has had a tubal ligation, but no hysterectomy. She still has her gallbladder and appendix. She denies any history of fibroids, uterine cancer, or cervical cancer. She went through menopause in her 50s. She denies any weight loss, weight gain, or fever. She is on Coumadin. She has a history of glaucoma and a pacemaker. Source of History: patient Onset: last night Position: other (vaginal bleeding) Quality: other (like a period) Timing: other (persistent) Associated Symptoms: + abdominal pain, No fevers, No nausea, No urinary symptoms Note: Pt denies weight gain/loss, dizziness, rectal bleeding. Review of Systems See HPI for pertinent positives & negatives. A total of 10 systems reviewed and were otherwise negative. Past Medical & Surgical Medical Problems: (1) Atrial Fibrillation (2) Cardiac Pacemaker In Situ (3) Chest pain (4) Flu (5) Hyperlipidemia Nec/Nos (6) Personal History, Pneumonia (Recurrent) (7) Pnemonia (8) Spinal Stenosis-Lumbar Family History FH: CAD (coronary artery disease) FH: esophageal cancer FH: lung cancer Social History Smoking Status: Never Smoker Drug Use: none Marital Status: Occupation Status: retired Current/Historical Medications Scheduled Ascorbic Acid (Vitamin C), 250 MG PO DAILY Bimatoprost (Lumigan), 1 DROPS OP HS Calcium Carbonate (Calcium Carbonate), 600 MG PO DAILY Cephalexin Monohydrate (Keflex), 500 MG PO QID Cyanocobalamin (B-12), 100 MCG PO DAILY Docusate Sodium (Docusate Sodium), 100 MG PO DAILY Dorzolamide Hcl-Timolol Maleat (Cosopt Oph), 1 DROPS OPB BID Ezetimibe (Zetia), 10 MG PO DAILY Methenamine Hippurate (Methenamine Hippurate), 1 GM PO QPM Pilocarpine Hcl (Isopto Carpine), 1 DROP OP QID Simvastatin (Zocor), 20 MG PO QPM Scheduled PRN Albuterol Hfa (Ventolin Hfa), 2 PUFFS INH Q6H PRN for SOB/Wheezing Esomeprazole Magnesium (Nexium), 40 MG PO DAILY PRN for HEARTBURN/INDIGESTION Furosemide (Lasix), 20 MG PO DAILY PRN for FLUID RETENTION Allergies Coded Allergies: Acetaminophen (Verified Allergy, Unknown, ON PHARMACY LIST, 06/03/17) Nitrofuran Derivatives (Verified Allergy, Unknown, ON PHARMACY LIST, ) Nitrofurantoin (Verified Allergy, Unknown, ON PHARMACY LIST, 06/03/17) Oxycodone (Verified Allergy, Unknown, ON PHARMACY LIST, 06/03/17) Sulfa Antibiotics (Verified Allergy, Unknown, RASH, SWEATING, VOMITING, ) Tramadol (Verified Allergy, Unknown, ., 06/03/17) Morphine (Verified Adverse Reaction, Intermediate, vomiting, 03/27/17) Physical Exam Vital Signs Date Time Temp Pulse Resp B/P (MAP) Pulse Ox O2 Delivery O2 Flow Rate FiO2 06/03/17 17:39 80 16 144/80 92 06/03/17 16:52 80 16 144/80 92 06/03/17 15:13 93 Room Air 06/03/17 14:31 36.7 73 18 143/83 93 Room Air Physical Exam GENERAL: Patient is awake, alert, and in no acute distress. Patient is resting comfortably and showing no signs of anxiety EYES: The conjunctivae are clear. The pupils are round and reactive. EARS, NOSE, MOUTH AND THROAT: The nose is without any evidence of any deformity. Mucous membranes are moist tongue is midline NECK: The neck is nontender and supple. RESPIRATORY: Normal respiratory effort is noted there is no evidence of wheezing rhonchi or rales CARDIOVASCULAR: Regular rate and rhythm noted there no murmurs rubs or gallops normal S1 normal S2 GASTROINTESTINAL: The abdomen is soft. Bowel sounds are present in all quadrants. Abdomen is nontender MUSCULOSKELETAL/EXTREMITIES: There is no evidence of gross deformity full range of motion is noted in the hips and shoulders SKIN: There is trace pedal edema bilaterally. NEUROLOGIC: Patient is awake alert and oriented x3 Medical Decision & Procedures ER Provider Diagnostic Interpretation: Radiology results as stated below per my review and radiologist interpretation: ULTRASOUND OF THE PELVIS CLINICAL HISTORY: Vaginal bleeding. COMPARISON STUDY: Pelvic CT dated 02/03/2011. TECHNIQUE: Real-time, grayscale, and color flow sonography of the pelvis is performed transabdominally. Images are reviewed in the transverse and longitudinal planes. The patient declined the endovaginal examination. FINDINGS: Uterus: The uterus is normal in size and heterogeneous in echotexture, measuring 8.0 x 2.3 x 4.1 cm. Endometrium: The endometrium is thickened for age, and the endometrial stripe measures up to 1.0 cm. There is trace fluid in the endometrial canal. A 1.1 cm hyperechoic structure suggested in the fundal region. Ovaries: The ovaries were not visualized transabdominally examination. Pelvis: There is no free fluid in the cul-de-sac. No concerning adnexal lesion is seen. IMPRESSION: 1. The patient declined the endovaginal examination. 2. The endometrium is thickened for age measuring up to 10 mm in thickness. Follow-up with gynecology is recommended with consideration to endometrial biopsy. 3. Fluid within the endometrial cavity is nonspecific and may related to endometrial atrophy. 4. A more focal 1.1 cm hyperechoic structure Isthmus seen within the endometrial canal in the fundal region. A small polyp is not excluded. 5. The ovaries were not visualized. No concerning adnexal lesion is identified. Electronically signed by: Shaun Eduardo M.D. 06/03/2017 4:26 PM Dictated Date/Time: 06/03/2017 4:22 PM Laboratory Results 06/03/17 15:11 Red Blood Count 4.24, Mean Corpuscular Volume 91.5, Mean Corpuscular Hemoglobin 30.0, Mean Corpuscular Hemoglobin Concent 32.7, Mean Platelet Volume 8.5, Neutrophils (%) (Auto) 70.8, Lymphocytes (%) (Auto) 11.8, Monocytes (%) (Auto) 9.9, Eosinophils (%) (Auto) 6.8, Basophils (%) (Auto) 0.4, Neutrophils # (Auto) 9.03, Lymphocytes # (Auto) 1.50, Monocytes # (Auto) 1.26, Eosinophils # (Auto) 0.87, Basophils # (Auto) 0.05 06/03/17 15:11 Test 06/03/17 15:11 06/03/17 15:59 06/03/17 16:14 White Blood Count 12.75 K/uL (4.8-10.8) Red Blood Count 4.24 M/uL (4.2-5.4) Hemoglobin 12.7 g/dL (12.0-16.0) Hematocrit 38.8 % (37-47) Mean Corpuscular Volume 91.5 fL (80-100) Mean Corpuscular Hemoglobin 30.0 pg (25-34) Mean Corpuscular Hemoglobin Concent 32.7 g/dl (32-36) Platelet Count 202 K/uL (130-400) Mean Platelet Volume 8.5 fL (7.4-10.4) Neutrophils (%) (Auto) 70.8 % Lymphocytes (%) (Auto) 11.8 % Monocytes (%) (Auto) 9.9 % Eosinophils (%) (Auto) 6.8 % Basophils (%) (Auto) 0.4 % Neutrophils # (Auto) 9.03 K/uL (1.4-6.5) Lymphocytes # (Auto) 1.50 K/uL (1.2-3.4) Monocytes # (Auto) 1.26 K/uL (0.11-0.59) Eosinophils # (Auto) 0.87 K/uL (0-0.5) Basophils # (Auto) 0.05 K/uL (0-0.2) RDW Standard Deviation 49.6 fL (36.4-46.3) RDW Coefficient of Variation 14.7 % (11.5-14.5) Immature Granulocyte % (Auto) 0.3 % Immature Granulocyte # (Auto) 0.04 K/uL (0.00-0.02) Anion Gap 4.0 mmol/L (3-11) Est Creatinine Clear Calc Drug Dose 57.8 ml/min Estimated GFR () 91.6 Estimated GFR (Non- 79.0 BUN/Creatinine Ratio 17.1 (10-20) Calcium Level 8.9 mg/dl (8.5-10.1) Total Bilirubin 0.4 mg/dl (0.2-1) Aspartate Amino Transf (AST/SGOT) 14 U/L (15-37) Alanine Aminotransferase (ALT/SGPT) 18 U/L (12-78) Alkaline Phosphatase 88 U/L (45-117) Total Protein 7.9 gm/dl (6.4-8.2) Albumin 3.2 gm/dl (3.4-5.0) Globulin 4.7 gm/dl (2.5-4.0) Albumin/Globulin Ratio 0.7 (0.9-2) Urine Color YELLOW Urine Appearance CLEAR (CLEAR) Urine pH 7.0 (4.5-7.5) Urine Specific [place] 1.014 (1.000-1.030) Urine Protein NEG (NEG) Urine Glucose (UA) NEG (NEG) Urine Ketones NEG (NEG) Urine Occult Blood NEG (NEG) Urine Nitrite POS (NEG) Urine Bilirubin NEG (NEG) Urine Urobilinogen NEG (NEG) Urine Leukocyte Esterase SMALL (NEG) Urine WBC (Auto) 10-30 /hpf (0-5) Urine RBC (Auto) 0-4 /hpf (0-4) Urine Hyaline Casts (Auto) 0 /lpf (0-5) Urine Epithelial Cells (Auto) 10-20 /lpf (0-5) Urine Bacteria (Auto) 3+ (NEG) Prothrombin Time 25.3 SECONDS (9.0-12.0) Prothromb Time International Ratio 2.5 (0.9-1.1) Activated Partial Thromboplast Time 48.8 SECONDS (21.0-31.0) Partial Thromboplastin Ratio 1.9 Laboratory results per my review. Medications Administered Medications (Trade) Dose Ordered Sig/Zoran Route Start Time Stop Time Status Last Admin Dose Admin Cephalexin Monohydrate (Keflex Cap) 500 mg NOW ONCE PO 06/03/17 17:00 06/03/17 17:01 DC 06/03/17 16:58 500 MG Cephalexin Monohydrate (Keflex 500MG Home Pack) 1 homepack NOW ONCE PO 06/03/17 17:00 06/03/17 17:01 DC 06/03/17 16:58 1 HOMEPACK ED Course 1438: The patient was evaluated in room A11A. A complete history and physical examination were performed. 1604: I reevaluated the patient. I updated her on the results. 1654: I discussed the patient's case with Dr. Guadalupe [facility] Success Advocate. We are in agreement with the plan. 165: Upon reevaluation, the patient is resting comfortably. I discussed the results and treatment plan with her. She verbalized agreement of the treatment plan. She was discharged home. 1700: Keflex 500 mg 1 homepack PO, Keflex Cap 500 mg PO. Medical Decision Prior records/ancillary studies reviewed. Triage Nursing notes reviewed. Additional history obtained from the family. The patient's history was concerning for vaginal bleeding and abdominal pain. Differential diagnosis: Etiologies such as ectopic , dysfunction uterine bleeding, bleeding dyscrasia, trauma, infection, as well as others were entertained. The patient is an 86-year-old female who presented to the emergency department for an evaluation of vaginal bleeding. The patient is postmenopausal but does take Coumadin. I discussed patient's laboratory and radiographic studies with her. She was started on antibiotic for presumed urinary tract infection. I discussed her case with the on-call [facility] physician. They have agreed to evaluate the patient in the office for further management and for likely biopsy of the uterus to rule out endometrial cancer. The patient was encouraged to return the emergency department immediately if symptoms change worsen or the need arises. Medication Reconcilliation Current Medication List: was personally reviewed by me Blood Pressure Screening Patient's blood pressure: Elevated blood pressure Blood pressure disposition: Referred to PCP Consults Time Called: 1630 Consulting Physician: Dr. Guadalupe [facility] Customer Success Adv[facility] Returned Call: 1653 I discussed the patient's case with her. We are in agreement with the plan. Impression Primary Impression: Vaginal bleeding Additional Impression: UTI (urinary tract infection) Scribe Attestation The scribe's documentation has been prepared under my direction and personally reviewed by me in its entirety. I confirm that the note above accurately reflects all work, treatment, procedures, and medical decision making performed by me. Departure Information Dispostion Home / Self-Care Prescriptions Cephalexin Monohydrate (KEFLEX) 500 Mg Cap 500 MG PO QID, #28 CAP Prov: Paul Parsons DO 06/03/17 Referrals Feli Ba DO (PCP) Fauzia Guadalupe M.D.([facility]/OB) Forms HOME CARE DOCUMENTATION FORM, IMPORTANT VISIT INFORMATION, WORK / SCHOOL INSTRUCTIONS Patient Instructions ED Bleed Irregular Vaginal, [facility], Urinary Tract Infecs Women Additional Instructions Call the [facility] physician in the morning to schedule a follow-up appointment. Continue all medications as prescribed. Drink plenty clear liquids. Return the emergency department immediately if symptoms change worsening the need arises. Problem Qualifiers Additional Impression: UTI (urinary tract infection) Urinary tract infection type: site unspecified Hematuria presence: without hematuria Qualified Codes: N39.0 - Urinary tract infection, site not specified
== END 2017-06-03 17:40 | disposition home or self-care (01) ==
LOC: C.EDB 14:29 → C.EDA 17:40
DX: N93.9 Abnormal uterine and vaginal bleeding, unspecified (principal); N39.0 Urinary tract infection, site not specified; I48.91 Unspecified atrial fibrillation; E78.5 Hyperlipidemia, unspecified; Z87.01 Personal history of pneumonia (recurrent); Z95.0 Presence of cardiac pacemaker; Z98.51 Tubal ligation status; Z78.0 Asymptomatic menopausal state; Z82.49 Family history of ischemic heart disease and other diseases of the circulatory system; Z80.1 Family history of malignant neoplasm of trachea, bronchus and lung; Z80.0 Family history of malignant neoplasm of digestive organs; Z88.6 Allergy status to analgesic agent; Z88.8 Allergy status to other drugs, medicaments and biological substances; Z88.5 Allergy status to narcotic agent; Z88.1 Allergy status to other antibiotic agents; Z79.01 Long term (current) use of anticoagulants; Z79.899 Other long term (current) drug therapy